=== PATIENT | female | born 1990 | race Caucasian/White ===

== ENCOUNTER 2016-10-01 19:10 | Emergency (ER) | payer OTHER ==
[2016-10-01 19:19] VITALS: BP 150/91; PULSE 93; RESP 18; TEMP 98.3
--- NOTE | 2016-10-01 19:32 | ED ---
ENT HPI - General Chief complaint: ENT Stated complaint: Sore Throat Time Seen by Provider: 10/01/16 19:18 Source: patient, RN notes reviewed Mode of arrival: ambulatory Limitations: no limitations - History of Present Illness Initial comments: 25 yo female presents to the ER with cc of sore throat. patient has had it for sore throat since yesterday. Patient has felt febrile. Patient states that her fever was up to 102. Patient denies a cough. Patient states that she has no other symptoms now ear pain. Patient states she was concerned due to her continued pain and was concerned that she may have strep throat. Patient denies any recent shortness of breath, chest pain, back pain, abdominal pain, nausea vomiting, numbness or tingling, dysuria or hematuria, constipation or diarrhea, headaches or visual changes, or any other current symptoms. - Related Data Home Medications Medication Instructions Recorded Confirmed Albuterol Inhaler [Ventolin Hfa 1 - 2 puff INHALATION RT-Q6H PRN 04/09/14 Inhaler] Albuterol Nebulized [Ventolin 2.5 mg INHALATION RT-Q4H PRN 04/09/14 09/28/15 Nebulized] Budesonide/Formoterol Fumarate 2 puff INHALATION RT-BID 09/23/15 09/28/15 [Symbicort 160-4.5 Mcg Inhaler] Citalopram Hydrobromide [CeleXA] 40 mg PO HS 09/23/15 09/28/15 Cyclobenzaprine [Flexeril] 10 mg PO TID PRN 09/23/15 09/28/15 Famotidine [Pepcid] 20 mg PO TID 09/23/15 09/28/15 Ibuprofen [Motrin] 800 mg PO TID PRN 09/23/15 09/28/15 Phentermine HCl [Adipex-P] 37.5 mg PO QAM 09/23/15 09/28/15 Previous Rx's Medication Instructions Recorded Ondansetron Odt [Zofran Odt] 4 mg PO Q8HR PRN #8 tab 09/23/15 Sucralfate [Carafate] 1 gm PO Q6H PRN #30 tablet 09/23/15 Promethazine [Phenergan] 25 mg PO Q6HR #16 tablet 09/28/15 Amoxicillin 500 mg PO Q8H #21 capsule 10/01/16 Allergies Allergy/AdvReac Type Severity Reaction Status Date / Time Egg Derived AdvReac CONGESTION Verified 10/01/16 19:14 milk AdvReac CONGESTION Verified 10/01/16 19:14 Review of Systems ROS Statement: Those systems with pertinent positive or pertinent negative responses have been documented in the HPI. ROS Other: All systems not noted in ROS Statement are negative. Past Medical History Past Medical History: Asthma Additional Past Medical History / Comment(s): Gastric ulcer History of Any Multi-Drug Resistant Organisms: None Reported Past Surgical History: Orthopedic Surgery Additional Past Surgical History / Comment(s): rotator cuff and left knee Past Anesthesia/Blood Transfusion Reactions: No Reported Reaction Past Psychological History: Depression Smoking Status: Current every day smoker Past Alcohol Use History: None Reported Past Drug Use History: None Reported General Exam - General Exam Comments Initial Comments: General exam: Alert, active, comfortable in no apparent distress Head: Normocephalic Eyes: Normal reaction of pupils, equal size, normal range of extraocular motion Ears: normal external ear canals, pink tympanic membranes with normal cone of light Nose: clear with pink turbinates Throat: erythema with exudateswith normal sized tonsils Neck: no masses, no nuchal rigidity Chest: no chest wall deformity Lungs: equal air entry with no crackles or wheeze CVS: S1 and S2 normal with no audible mumurs, regular rhythm Abdomen: no hepatosplenomegaly, normal bowel sounds, no guarding or rigidity Spine: no scoliosis or deformity Skin: no rashes Neurological: No focal deficits, tone is normal in all 4 extremities Limitations: no limitations Course Vital Signs 10/01/16 19:14 Temperature 98.3 F Pulse Rate 93 Respiratory 18 Rate Blood Pressure 150/91 O2 Sat by Pulse 97 Oximetry Medical Decision Making - Medical Decision Making 25-year-old female presents for appears to be pharyngitis. This and will start patient antibiotics. We discussed Motrin Tylenol for fever and pain control. We discussed return parameters and follow-up. We discussed all the patient's family's questions. He stated the Regino they are in agreement with the plan. This and will be discharged home. Disposition Clinical Impression: Acute pharyngitis Disposition: HOME SELF-CARE Condition: Stable Instructions: Pharyngitis (ED) Additional Instructions: Please use medication as discussed. Please follow up with family doctor if symptoms have not improved over the next two days. Please return to the emergency room if your symptoms increase or worsen or for any other concerns. Prescriptions: Amoxicillin 500 mg PO Q8H #21 capsule Referrals: Renee Roper DO [Primary Care Provider] - 1-2 days Time of Disposition: 19:31
== END 2016-10-01 19:41 | disposition home or self-care (01) ==
LOC: EC 19:10
DX: J02.9 Acute pharyngitis, unspecified (principal); J45.909 Unspecified asthma, uncomplicated; K25.9 Gastric ulcer, unspecified as acute or chronic, without hemorrhage or perforation; F32.9 Major depressive disorder, single episode, unspecified; F17.200 Nicotine dependence, unspecified, uncomplicated; Z91.011 Allergy to milk products; Z91.012 Allergy to eggs; Z79.51 Long term (current) use of inhaled steroids; Z79.899 Other long term (current) drug therapy
CPT/HCPCS: 99282

== ENCOUNTER 2022-05-10 19:34 | Emergency (ER) | payer OTHER, BC ==
[2022-05-10 19:42] VITALS: TEMP 98
[2022-05-10] MEDS ORDERED: ONDANSETRON 4 MG/2 ML VIAL IVP STA (20:05)
[2022-05-10] MEDS ORDERED: SODIUM CHLORIDE 0.9% 2,000 ML IV STA (20:05)
[2022-05-10] MEDS ORDERED: KETOROLAC 15 MG/ML 1 ML VIAL IVP STA (20:05)
[2022-05-10 20:17] VITALS: RESP 16
[2022-05-10 20:22] LABS: Appearance,Urine Clear (Clear); Bilirubin,Urine Negative (Negative); Blood,Urine Negative (Negative); Color,Urine Yellow; Glucose,Urine (UA) Negative (Negative); Ketones,Urine Negative (Negative); Leukocyte Esterase,Urine Negative (Negative); Nitrite,Urine Negative (Negative); PH, Urine 5.5 (5.0-8.0); Protein,Urine Negative (Negative); Specific Gravity,Urine 1.017 (1.001-1.035); Urobilinogen,Urine <2.0 mg/dL (<2.0)
--- NOTE | 2022-05-10 22:00 | CT ---
EXAMINATION TYPE: CT abdomen pelvis w con CT DLP: 1856.6 mGycm, Automated exposure control for dose reduction was used. DATE OF EXAM: 05/10/2022 9:50 PM COMPARISON: CT abdomen pelvis most recent from 06/27/2010 CLINICAL INDICATION:Female, 31 years old with history of abdominal pain right; pain TECHNIQUE: Axial CT of the abdomen and pelvis. Sagittal and coronal reformats were created on a [facility] workstation. Contrast used:100ml mL of Isovue 300 with IV Contrast, Oral contrast used: without Oral Contrast FINDINGS: LOWER CHEST: Unremarkable ABDOMEN LIVER: Diffusely hypoattenuating parenchyma. GALLBLADDER AND BILE DUCTS: Unremarkable. PANCREAS: Unremarkable. SPLEEN: Unremarkable. ADRENAL GLANDS: Unremarkable. KIDNEYS AND URETERS: No evidence of hydronephrosis or renal calculus. The ureters are unremarkable. PELVIS BLADDER: Unremarkable REPRODUCTIVE: Unremarkable. ABDOMEN & PELVIS STOMACH AND BOWEL: No evidence of bowel obstruction. Appendix is normal. PERITONEUM/RETROPERITONEUM: No evidence of pneumoperitoneum or free fluid. . VASCULATURE: No evidence of aortic aneurysm. MUSCULOSKELETAL: No acute osseous abnormalities LYMPH NODES: No gross evidence for lymphadenopathy. SOFT TISSUE/ABDOMINAL WALL: Fat-containing umbilical hernia. IMPRESSION: 1. No evidence for acute abdominal process. No obstructive uropathy. The appendix is normal. 2. Hepatic steatosis.
--- NOTE | 2022-05-10 22:15 | ED ---
Abdominal Pain HPI - General Chief Complaint: Abdominal Pain Stated Complaint: Abdominal pain; nausea; fever Time Seen by Provider: 05/10/22 19:48 Source: patient, RN notes reviewed Mode of arrival: ambulatory Limitations: no limitations - History of Present Illness Initial Comments: 31-year-old female presents emergency Department chief complaint right-sided abdominal pain. Patient states that she's been sick throughout the day. Patient states that nothing makes the pain feel better or worse at this time. Patient states primarily right lower radiates up to the right upper. Patient reports subjective fever. No chest pain or shortness of breath denies any dysuria hematuria no history of kidney stones. Patient denies any chance . - Related Data Home Medications Medication Instructions Recorded Confirmed Albuterol Inhaler [Ventolin Hfa 2 puff INHALATION RT-Q6H PRN 04/09/14 05/10/22 Inhaler] Albuterol Nebulized [Ventolin 2.5 mg INHALATION RT-QID PRN 04/09/14 05/10/22 Nebulized] Citalopram Hydrobromide [CeleXA] 40 mg PO HS 09/23/15 05/10/22 Mometasone/Formoterol [Dulera 200 2 puff INHALATION RT-BID 05/10/22 05/10/22 Mcg-5 Mcg Inhaler] Montelukast [Singulair] 10 mg PO HS 05/10/22 05/10/22 Pantoprazole [Protonix] 40 mg PO HS 05/10/22 05/10/22 Topiramate 100 mg PO BID 05/10/22 05/10/22 Vestura 3 Mg - 0.02 Mg Tab 1 tab PO HS 05/10/22 05/10/22 Previous Rx's Medication Instructions Recorded Ondansetron Odt [Zofran Odt] 4 mg PO Q8HR PRN #10 tab 05/10/22 Allergies Allergy/AdvReac Type Severity Reaction Status Date / Time Egg Derived AdvReac CONGESTION Verified 05/10/22 21:14 milk AdvReac CONGESTION Verified 05/10/22 21:14 Review of Systems ROS Statement: Those systems with pertinent positive or pertinent negative responses have been documented in the HPI. ROS Other: All systems not noted in ROS Statement are negative. Past Medical History Past Medical History: Asthma Additional Past Medical History / Comment(s): Gastric ulcer History of Any Multi-Drug Resistant Organisms: None Reported Past Surgical History: Hernia Repair, Orthopedic Surgery Additional Past Surgical History / Comment(s): rotator cuff and left knee Past Anesthesia/Blood Transfusion Reactions: No Reported Reaction Past Psychological History: Depression Smoking Status: Current every day smoker Past Alcohol Use History: None Reported Past Drug Use History: None Reported General Exam Limitations: no limitations General appearance: alert, in no apparent distress Head exam: Present: atraumatic, normocephalic, normal inspection Eye exam: Present: normal appearance, PERRL, EOMI. Absent: scleral icterus, conjunctival injection, periorbital swelling ENT exam: Present: normal exam, normal oropharynx, mucous membranes moist Neck exam: Present: normal inspection, full ROM. Absent: tenderness, meningismus, lymphadenopathy Respiratory exam: Present: normal lung sounds bilaterally. Absent: respiratory distress, wheezes, rales, rhonchi, stridor Cardiovascular Exam: Present: regular rate, normal rhythm, normal heart sounds. Absent: systolic murmur, diastolic murmur, rubs, gallop, clicks GI/Abdominal exam: Present: soft, tenderness, normal bowel sounds. Absent: distended, guarding, rebound, rigid Back exam: Absent: CVA tenderness (R), CVA tenderness (L) Neurological exam: Present: alert Course Vital Signs 05/10/22 05/10/22 05/10/22 19:38 20:16 21:00 Temperature 98 F Pulse Rate 90 72 78 Respiratory 20 16 Rate Blood Pressure 196/118 143/93 117/90 O2 Sat by Pulse 98 97 97 Oximetry Medical Decision Making - Medical Decision Making Was pt. sent in by a medical professional or institution (, PA, CHASSIS WIRER, urgent care, hospital, or snf...) When possible be specific @ -No Did you speak to anyone other than the patient for history (EMS, parent, family, police, friend...)? What history was obtained from this source @ -No Did you review nursing and triage notes (agree or disagree)? Why? @ -I reviewed and agree with nursing and triage notes Were old charts reviewed (outside hosp., previous admission, EMS record, old EKG, old radiological studies, urgent care reports/EKG's, snf records)? Report findings @ -No old charts were reviewed Differential Diagnosis (chest pain, altered mental status, abdominal pain women, abdominal pain men, vaginal bleeding, weakness, fever, dyspnea, syncope, headache, dizziness, GI bleed, back pain, seizure, CVA, palpatations, mental health)? @ -Differential Abdominal Pain Men: Appendicitis, cholecystitis, diverticulosis, ischemic bowel, pancreatitis, hepatitis, UTI, gastroenteritis, AAA, incarcerated hernia, bowel obstruction, constipation, inflammatory bowel, hepatitis, peptic ulcer disease, splenic infarction, perforated viscus, testicular torsion, this is not meant to be an all-inclusive list EKG interpreted by me (3pts min.). @ -None X-rays interpreted by me (1pt min.). @ -None done CT interpreted by me (1pt min.). @ -CT of the abdomen and pelvis shows no acute intra-abdominal process. U/S interpreted by me (1pt. min.). @ -None done What testing was considered but not performed or refused? (CT, X-rays, U/S, labs)? Why? @ -None What meds were considered but not given or refused? Why? @ -None Did you discuss the management of the patient with other professionals (professionals i.e. , PA, CHASSIS WIRER, lab, RT, psych nurse, geriatric social worker, employee relations manager, teacher, finance officer, child welfare caseworker)? Give summary @ -No Was smoking cessation discussed for >3mins.? @ -No Was critical care preformed (if so, how long)? @ -No Were there social determinants of health that impacted care today? How? (Homelessness, low income, unemployed, alcoholism, drug addiction, transportation, low edu. Level, literacy, decrease access to med. care, usp, rehab)? @ -No Was there de-escalation of care discussed even if they declined (Discuss DNR or withdrawal of care, Hospice)? DNR status @ -No What co-morbidities impacted this encounter? (DM, HTN, Smoking, COPD, CAD, Cancer, CVA, ARF, Chemo, Hep., AIDS, mental health diagnosis, sleep apnea, morbid obesity)? @ -None Was patient admitted / discharged? Hospital course, mention meds given and route, prescriptions, significant lab abnormalities, going to OR and other pertinent info. @ -Discharge patient have. Labs come CT with no acute findings. Patient is improved after fluids, antiemetics. Patient was discharged with antiemetics, clear liquid diet return parameters were discussed. Undiagnosed new problem with uncertain prognosis? @ -No Drug Therapy requiring intensive monitoring for toxicity (Heparin, Nitro, Insulin, Cardizem)? @ -No Were any procedures done? @ -No Diagnosis/symptom? @ -Gastroenteritis Acute, or Chronic, or Acute on Chronic? @ -Acute Uncomplicated (without systemic symptoms) or Complicated (systemic symptoms)? @ -Uncomplicated Side effects of treatment? @ -No Exacerbation, Progression, or Severe Exacerbation? @ -No Poses a threat to life or bodily function? How? (Chest pain, [place], [place], pneumonia, PE, COPD, DKA, ARF, appy, cholecystitis, CVA, Diverticulitis, Homicidal, Suicidal, threat to staff... and all critical care pts) @ -No - Lab Data Result diagrams: 05/10/22 20:06 05/10/22 20:06 Lab Results 05/10/22 05/10/22 05/10/22 Range/Units 20:05 20:05 20:06 WBC 9.0 (3.8-10.6) k/uL RBC 4.31 (3.80-5.40) m/uL Hgb 13.5 (11.4-16.0) gm/dL Hct 39.2 (34.0-46.0) % MCV 91.1 (80.0-100.0) fL MCH 31.3 (25.0-35.0) pg MCHC 34.3 (31.0-37.0) g/dL RDW 12.6 (11.5-15.5) % Plt Count 220 (150-450) k/uL MPV 10.0 Neutrophils % 58 % Lymphocytes % 31 % Monocytes % 7 % Eosinophils % 3 % Basophils % 1 % Neutrophils # 5.2 (1.3-7.7) k/uL Lymphocytes # 2.8 (1.0-4.8) k/uL Monocytes # 0.6 (0-1.0) k/uL Eosinophils # 0.3 (0-0.7) k/uL Basophils # 0.1 (0-0.2) k/uL Sodium (137-145) mmol/L Potassium (3.5-5.1) mmol/L Chloride (98-107) mmol/L Carbon Dioxide (22-30) mmol/L Anion Gap mmol/L BUN (7-17) mg/dL Creatinine (0.52-1.04) mg/dL Est GFR (CKD-EPI)AfAm (>60 ml/min/1.73 sqM) Est GFR (CKD-EPI)NonAf (>60 ml/min/1.73 sqM) Glucose (74-99) mg/dL Plasma Lactic Acid [place] (0.7-2.0) mmol/L Calcium (8.4-10.2) mg/dL Total Bilirubin (0.2-1.3) mg/dL AST (14-36) U/L ALT (4-34) U/L Alkaline Phosphatase (38-126) U/L Total Protein (6.3-8.2) g/dL Albumin (3.5-5.0) g/dL Amylase (30-110) U/L Lipase (23-300) U/L Urine Color Yellow Urine Appearance Clear (Clear) Urine pH 5.5 (5.0-8.0) Ur Specific [place] 1.017 (1.001-1.035) Urine Protein Negative (Negative) Urine Glucose (UA) Negative (Negative) Urine Ketones Negative (Negative) Urine Blood Negative (Negative) Urine Nitrite Negative (Negative) Urine Bilirubin Negative (Negative) Urine Urobilinogen <2.0 (<2.0) mg/dL Ur Leukocyte Esterase Negative (Negative) Urine HCG, Qual Not Detected (Not Detectd) 05/10/22 05/10/22 Range/Units 20:06 20:06 WBC (3.8-10.6) k/uL RBC (3.80-5.40) m/uL Hgb (11.4-16.0) gm/dL Hct (34.0-46.0) % MCV (80.0-100.0) fL MCH (25.0-35.0) pg MCHC (31.0-37.0) g/dL RDW (11.5-15.5) % Plt Count (150-450) k/uL MPV Neutrophils % % Lymphocytes % % Monocytes % % Eosinophils % % Basophils % % Neutrophils # (1.3-7.7) k/uL Lymphocytes # (1.0-4.8) k/uL Monocytes # (0-1.0) k/uL Eosinophils # (0-0.7) k/uL Basophils # (0-0.2) k/uL Sodium 139 (137-145) mmol/L Potassium 3.6 (3.5-5.1) mmol/L Chloride 110 H (98-107) mmol/L Carbon Dioxide 20 L (22-30) mmol/L Anion Gap 9 mmol/L BUN 13 (7-17) mg/dL Creatinine 0.76 (0.52-1.04) mg/dL Est GFR (CKD-EPI)AfAm >90 (>60 ml/min/1.73 sqM) Est GFR (CKD-EPI)NonAf >90 (>60 ml/min/1.73 sqM) Glucose 83 (74-99) mg/dL Plasma Lactic Acid [place] 1.1 (0.7-2.0) mmol/L Calcium 9.4 (8.4-10.2) mg/dL Total Bilirubin 0.4 (0.2-1.3) mg/dL AST 42 H (14-36) U/L ALT 74 H (4-34) U/L Alkaline Phosphatase 53 (38-126) U/L Total Protein 6.8 (6.3-8.2) g/dL Albumin 4.0 (3.5-5.0) g/dL Amylase 42 (30-110) U/L Lipase 67 (23-300) U/L Urine Color Urine Appearance (Clear) Urine pH (5.0-8.0) Ur Specific [place] (1.001-1.035) Urine Protein (Negative) Urine Glucose (UA) (Negative) Urine Ketones (Negative) Urine Blood (Negative) Urine Nitrite (Negative) Urine Bilirubin (Negative) Urine Urobilinogen (<2.0) mg/dL Ur Leukocyte Esterase (Negative) Urine HCG, Qual (Not Detectd) Disposition Clinical Impression: Abdominal pain, Gastroenteritis Disposition: HOME SELF-CARE Condition: Stable Instructions (If sedation given, give patient instructions): Abdominal Pain (ED) Additional Instructions: Please return to the Emergency Department if symptoms worsen or any other concerns. Prescriptions: Ondansetron Odt [Zofran Odt] 4 mg PO Q8HR PRN #10 tab PRN Reason: Nausea Is patient prescribed a controlled substance at d/c from ED?: No Referrals: Renee Roper DO [Primary Care Provider] - 1-2 days Time of Disposition: 23:25
[2022-05-10] MEDS ORDERED: METOCLOPRAMIDE 5 MG/ML 2 ML VIAL IVP STA (22:48)
[2022-05-10 22:57] LABS: Basophils # (A) 0.1 k/uL (0-0.2); Basophils % (A) 1 %; Eosinophils # (A) 0.3 k/uL (0-0.7); Eosinophils % (A) 3 %; HCT 39.2 % (34.0-46.0); HGB 13.5 gm/dL (11.4-16.0); Lymphocytes # (A) 2.8 k/uL (1.0-4.8); Lymphocytes % (A) 31 %; MCH 31.3 pg (25.0-35.0); MCHC 34.3 g/dL (31.0-37.0); MCV 91.1 fL (80.0-100.0); Monocytes # (A) 0.6 k/uL (0-1.0); Monocytes % (A) 7 %; Neutrophils # (A) 5.2 k/uL (1.3-7.7); Neutrophils % (A) 58 %; Platelet Count 220 k/uL (150-450); RBC 4.31 m/uL (3.80-5.40); RDW 12.6 % (11.5-15.5)
[2022-05-10 23:03] LABS: ALT 74 U/L (4-34); AST 42 U/L (14-36); African American GFR (CKD) >90 (>60 ml/min/1.73 sqM); Alkaline Phosphatase 53 U/L (38-126); Amylase 42 U/L (30-110); Anion Gap 9 mmol/L; Blood Urea Nitrogen 13 mg/dL (7-17); Calcium 9.4 mg/dL (8.4-10.2); Carbon Dioxide 20 mmol/L (22-30); Chloride 110 mmol/L (98-107); Glucose 83 mg/dL (74-99); Lipase 67 U/L (23-300); Non-African American GFR(CKD) >90 (>60 ml/min/1.73 sqM); Potassium 3.6 mmol/L (3.5-5.1); Sodium 139 mmol/L (137-145); Total Bilirubin 0.4 mg/dL (0.2-1.3); Total Protein 6.8 g/dL (6.3-8.2)
[2022-05-10] MEDS ORDERED: ACET/COD 300 MG/30 MG STARTER PACK 6 TAB BTL PO STA (23:23)
[2022-05-10] MEDS ORDERED: ONDANSETRON 4 MG ODT STARTER PACK 2 TAB BTL PO STA (23:24)
[2022-05-10 23:56] VITALS: BP 128/76; PULSE 72
== END 2022-05-10 23:56 | disposition home or self-care (01) ==
LOC: EC 19:34
DX: K52.9 Noninfective gastroenteritis and colitis, unspecified (principal); J45.909 Unspecified asthma, uncomplicated; F32.A Depression, unspecified; F17.200 Nicotine dependence, unspecified, uncomplicated; Z91.012 Allergy to eggs; Z91.011 Allergy to milk products; Z79.899 Other long term (current) drug therapy
CPT/HCPCS: 36415; 80053; 82150; 83605; 83690; 85025; 81003; 81025; 74177; 99284; 96374; 96375 ×2; 96361 ×2; J2765; J2405; J1885; S0119; Q9967

== ENCOUNTER → 2022-07-22 | Outpatient (CLI) | payer OTHER ==
--- NOTE | 2022-07-22 21:54 | MR ---
EXAMINATION TYPE: MR brain wo con DATE OF EXAM: 07/22/2022 8:58 PM COMPARISON: NONE HISTORY: Severe Headaches for many years Multiplanar and multispin-echo imaging of the brain was performed . The ventricles, basal cisterns and sulci overlying the cerebral convexities are within normal limits. There is no evidence for midline shift or mass effect. Acute intracranial hemorrhage or extra-axial collection is not evident. The brain parenchyma reveals no abnormal increased signal. No acute edema is identified. The paranasal sinuses small mucous retention cyst right maxillary sinus. Mastoid air cells are well-a erated. IMPRESSION: Unremarkable MRI of the brain.
== END | disposition home or self-care (01) ==
LOC: RADMRIMAIN 20:15
PROVIDERS: ATTEND Family Medicine
DX: G43.009 Migraine without aura, not intractable, without status migrainosus (principal)
CPT/HCPCS: 70551

== ENCOUNTER 2023-04-26 13:03 | Inpatient (IN) | payer OTHER ==
[2023-04-26] MEDS ORDERED: ONDANSETRON 4 MG/2 ML VIAL IVP STA (13:53)
[2023-04-26] MEDS ORDERED: SODIUM CHLORIDE 0.9% 1,000 ML IV STA (13:53)
[2023-04-26] MEDS ORDERED: KETOROLAC 15 MG/ML 1 ML VIAL IVP STA (13:54)
--- NOTE | 2023-04-26 13:55 | ED ---
Nausea/Vomiting/Diarrhea HPI - General Chief complaint: Nausea/Vomiting/Diarrhea Stated complaint: NV, Bodyaches Time Seen by Provider: 04/26/23 13:16 Source: patient, RN notes reviewed, old records reviewed Mode of arrival: ambulatory Limitations: no limitations - History of Present Illness Initial comments: This is a 31-year-old female to the emergency department for evaluation of severe abdominal pain persistent abdominal pain with nausea vomiting. Patient has significant findings here in the emergency department consistent with severe pain with nausea vomiting she has felt chills without fever. Patient states her pain is uncontrollable. She is severely uncomfortable with intermittent waves of pain MD complaint: nausea, diarrhea, abdominal pain -: days(s) Description of Vomiting: food contents, watery Description of Diarrhea: water Associated Abdominal Pain: Yes Location: diffuse, RUQ Severity scale (1-10): 7 Quality: cramping, stabbing Consistency: constant Improves with: eating Worsens with: none Associated Symptoms: nausea/vomiting, shortness of breath, weakness - Related Data Home Medications Medication Instructions Recorded Confirmed Albuterol Inhaler [Ventolin Hfa 2 puff INHALATION RT-Q6H PRN 04/09/14 04/26/23 Inhaler] Albuterol Nebulized [Ventolin 2.5 mg INHALATION RT-QID PRN 04/09/14 04/26/23 Nebulized] Citalopram Hydrobromide [CeleXA] 40 mg PO HS 09/23/15 04/26/23 Mometasone/Formoterol [Dulera 200 2 puff INHALATION RT-BID 05/10/22 04/26/23 Mcg-5 Mcg Inhaler] Montelukast [Singulair] 10 mg PO HS 05/10/22 04/26/23 Pantoprazole [Protonix] 40 mg PO BID 05/10/22 04/26/23 Topiramate 200 mg PO HS 05/10/22 04/26/23 Dextroamphetamine/Amphetamine 20 mg PO DAILY 04/26/23 04/26/23 [Adderall Xr 20 mg Capsule] Ethinyl Estradiol/Drospirenone 1 tab PO HS 04/26/23 04/26/23 [Deysi 28 Tablet] Famotidine [Pepcid] 20 mg PO DAILY 04/26/23 04/26/23 Metoclopramide [Reglan] 10 mg PO QID PRN 04/26/23 04/26/23 Ondansetron [Zofran] 4 mg PO TID PRN 04/26/23 04/26/23 Sucralfate [Carafate] 1 gm PO ACHS 04/26/23 04/26/23 Previous Rx's Medication Instructions Recorded Acetaminophen Tab [Tylenol Tab] 1,000 mg PO Q6HR PRN #30 tablet 04/28/23 Ibuprofen [Motrin] 600 mg PO Q8HR PRN #30 tab 04/28/23 Simethicone [Gas-X] 125 mg PO AC-TID PRN #20 capsule 04/28/23 Allergies Allergy/AdvReac Type Severity Reaction Status Date / Time No Known Allergies Allergy Verified 04/28/23 14:38 Review of Systems ROS Statement: Those systems with pertinent positive or pertinent negative responses have been documented in the HPI. ROS Other: All systems not noted in ROS Statement are negative. Past Medical History Past Medical History: Asthma Additional Past Medical History / Comment(s): Gastric ulcer, H Pylori 04/08 History of Any Multi-Drug Resistant Organisms: None Reported Past Surgical History: Hernia Repair, Orthopedic Surgery Additional Past Surgical History / Comment(s): rotator cuff and left knee Past Anesthesia/Blood Transfusion Reactions: No Reported Reaction Past Psychological History: Depression Smoking Status: Vaper Past Alcohol Use History: None Reported Past Drug Use History: None Reported General Exam Limitations: no limitations General appearance: alert, in no apparent distress, anxious Head exam: Present: atraumatic, normocephalic, normal inspection Eye exam: Present: normal appearance, PERRL, EOMI. Absent: scleral icterus, conjunctival injection, periorbital swelling ENT exam: Present: normal exam, mucous membranes moist Neck exam: Present: normal inspection. Absent: tenderness, meningismus, lymphadenopathy Respiratory exam: Present: normal lung sounds bilaterally. Absent: respiratory distress, wheezes, rales, rhonchi, stridor Cardiovascular Exam: Present: regular rate, normal rhythm, normal heart sounds. Absent: systolic murmur, diastolic murmur, rubs, gallop, clicks GI/Abdominal exam: Present: soft, distended, tenderness, guarding, rebound, normal bowel sounds. Absent: rigid Extremities exam: Present: normal inspection, full ROM, normal capillary refill. Absent: tenderness, pedal edema, joint swelling, calf tenderness Back exam: Present: normal inspection Neurological exam: Present: alert, oriented X3, CN II-XII intact Psychiatric exam: Present: normal affect, normal mood Skin exam: Present: warm, dry, intact, normal color. Absent: rash Course Vital Signs 04/26/23 04/26/23 13:09 19:45 Temperature 97.7 F 98.7 F Pulse Rate 102 H 98 Respiratory 18 16 Rate Blood Pressure 135/88 132/78 O2 Sat by Pulse 96 96 Oximetry - Reevaluation(s) Reevaluation #1: 04/26/23 20:05 Medical records reviewed Reevaluation #2: 04/26/23 20:05 Patient symptoms improved 04/26/23 20:05 Point to come back after pain medication wears off Reevaluation #3: 04/26/23 20:05 Patient informed results and questions answered Reevaluation #4: 04/26/23 20:05 Was pt. sent in by a medical professional or institution (, PA, BOWLING ALLEY MANAGER, urgent care, hospital, or fci...) When possible be specific @ -no Did you speak to anyone other than the patient for history (EMS, parent, family, police, friend...)? What history was obtained from this source @ -no Did you review nursing and triage notes (agree or disagree)? Why? @ -agree Are old charts reviewed (outside hosp., previous admission, EMS record, old EKG, old radiological studies, urgent care reports/EKG's, fci records)? Report findings @ -yes Differential Diagnosis (chest pain, altered mental status, abdominal pain women, abdominal pain men, vaginal bleeding, weakness, fever, dyspnea, syncope, headache, dizziness, GI bleed, back pain, seizure, CVA, palpatations, mental health, musculoskeletal)? @ -prior EKG interpreted by me (3pts min.). @ -yes X-rays interpreted by me (1pt min.). @ -no CT interpreted by me (1pt min.). @ -no U/S interpreted by me (1pt. min.). @ -yes positive for cholecystitis What testing was considered but not performed or refused? (CT, X-rays, U/S, labs)? Why? @ -none What meds were considered but not given or refused? Why? @ -none Did you discuss the management of the patient with other professionals (professionals i.e. DrShaun, PA, BOWLING ALLEY MANAGER, lab, RT, psych nurse, social media marketing manager, saw boss, teacher, correctional probation officer, nurse case management)? Give summary @ -no Was smoking cessation discussed for >3mins.? @ -no Was critical care preformed (if so, how long)? @ -no Were there social determinants of health that impacted care today? How? (Homelessness, low income, unemployed, alcoholism, drug addiction, transportation, low edu. Level, literacy, decrease access to med. care, senior care, rehab)? @ -none Was there de-escalation of care discussed even if they declined (Discuss DNR or withdrawal of care, Hospice)? DNR status @ -no What co-morbidities impacted this encounter? (DM, HTN, Smoking, COPD, CAD, Cancer, CVA, ARF, Chemo, Hep., AIDS, mental health diagnosis, sleep apnea, morbid obesity)? @ -none Was patient admitted / discharged? Hospital course, mention meds given and route, prescriptions, significant lab abnormalities, going to OR and other pertinent info. @ - 30-year-old female to the emergency department today for severe abdominal pain after eating findings indicative of cholecystitis and pain is controlled, patient will be admitted for IV antibiotics pain control and surgical evaluation Admitted Undiagnosed new problem with uncertain prognosis? @ -no Drug Therapy requiring intensive monitoring for toxicity (Heparin, Nitro, Insulin, Cardizem)? @ -no Were any procedures done? @ -no Diagnosis/symptom? @ -Acute cholecystitis Acute, or Chronic, or Acute on Chronic? @ -Acute Uncomplicated (without systemic symptoms) or Complicated (systemic symptoms)? @ -Complicated Side effects of treatment? @ -no Exacerbation, Progression, or Severe Exacerbation? @ -exacerbation Poses a threat to life or bodily function? How? (Chest pain, [place], [place], pneumonia, PE, COPD, DKA, ARF, appy, cholecystitis, CVA, Diverticulitis, Homicidal, Suicidal, threat to staff... and all critical care pts) @ -yes Reevaluation #5: 04/26/23 20:05 Differential Abdominal Pain Women: Appendicitis, Cholecystitis, diverticulosis, ischemic bowel, pancreatitis, hepatitis, UTI, gastroenteritis, AAA, incarcerated hernia, bowel obstruction, constipation, inflammatory bowel, hepatitis, peptic ulcer disease, splenic infarction, perforated viscus, vulvitis, ovarian torsion, PID, kidney stone, placenta abruption, this is not meant to be an all-inclusive list - Consultations Consultation #1: Spoke with Dr. Bowman who agrees to admit this patient Medical Decision Making - Medical Decision Making 30-year-old female to the emergency department today for severe abdominal pain after eating findings indicative of cholecystitis and pain is controlled, patient will be admitted for IV antibiotics pain control and surgical evaluation - Lab Data Result diagrams: 04/29/23 05:50 04/29/23 05:50 Lab Results 04/26/23 04/26/23 04/26/23 Range/Units 14:03 14:03 14:03 WBC 6.5 (3.8-10.6) k/uL RBC 4.48 (3.80-5.40) m/uL Hgb 13.8 (11.4-16.0) gm/dL Hct 40.2 (34.0-46.0) % MCV 89.8 (80.0-100.0) fL MCH 30.8 (25.0-35.0) pg MCHC 34.3 (31.0-37.0) g/dL RDW 12.9 (11.5-15.5) % Plt Count 233 (150-450) k/uL MPV 8.1 Neutrophils % 59 % Lymphocytes % 30 % Monocytes % 6 % Eosinophils % 2 % Basophils % 1 % Neutrophils # 3.8 (1.3-7.7) k/uL Lymphocytes # 1.9 (1.0-4.8) k/uL Monocytes # 0.4 (0-1.0) k/uL Eosinophils # 0.2 (0-0.7) k/uL Basophils # 0.0 (0-0.2) k/uL PT 10.4 (10.0-12.5) sec INR 0.9 (<1.2) APTT 26.4 (22.0-30.0) sec Sodium 139 (137-145) mmol/L Potassium 3.7 (3.5-5.1) mmol/L Chloride 111 H (98-107) mmol/L Carbon Dioxide 18 L (22-30) mmol/L Anion Gap 10 mmol/L BUN 10 (7-17) mg/dL Creatinine 0.78 (0.52-1.04) mg/dL Est GFR (CKD-EPI)AfAm >90 (>60 ml/min/1.73 sqM) Est GFR (CKD-EPI)NonAf >90 (>60 ml/min/1.73 sqM) Glucose 89 (74-99) mg/dL Calcium 9.4 (8.4-10.2) mg/dL Phosphorus 3.3 (2.5-4.5) mg/dL Magnesium 2.2 (1.6-2.3) mg/dL Total Bilirubin 0.5 (0.2-1.3) mg/dL AST 30 (14-36) U/L ALT 41 H (4-34) U/L Alkaline Phosphatase 73 (38-126) U/L Troponin I (0.000-0.034) ng/mL Total Protein 6.8 (6.3-8.2) g/dL Albumin 3.8 (3.5-5.0) g/dL Urine Color Urine Appearance (Clear) Urine pH (5.0-8.0) Ur Specific [place] (1.001-1.035) Urine Protein (Negative) Urine Glucose (UA) (Negative) Urine Ketones (Negative) Urine Blood (Negative) Urine Nitrite (Negative) Urine Bilirubin (Negative) Urine Urobilinogen (<2.0) mg/dL Ur Leukocyte Esterase (Negative) Urine RBC (0-5) /hpf Urine WBC (0-5) /hpf Ur Squamous Epith Cells (0-4) /hpf Urine Bacteria (None) /hpf Hyaline Casts (0-2) /lpf Urine Mucus (None) /hpf Urine HCG, Qual (Not Detectd) 04/26/23 04/26/23 04/26/23 Range/Units 14:03 14:03 14:03 WBC (3.8-10.6) k/uL RBC (3.80-5.40) m/uL Hgb (11.4-16.0) gm/dL Hct (34.0-46.0) % MCV (80.0-100.0) fL MCH (25.0-35.0) pg MCHC (31.0-37.0) g/dL RDW (11.5-15.5) % Plt Count (150-450) k/uL MPV Neutrophils % % Lymphocytes % % Monocytes % % Eosinophils % % Basophils % % Neutrophils # (1.3-7.7) k/uL Lymphocytes # (1.0-4.8) k/uL Monocytes # (0-1.0) k/uL Eosinophils # (0-0.7) k/uL Basophils # (0-0.2) k/uL PT (10.0-12.5) sec INR (<1.2) APTT (22.0-30.0) sec Sodium (137-145) mmol/L Potassium (3.5-5.1) mmol/L Chloride (98-107) mmol/L Carbon Dioxide (22-30) mmol/L Anion Gap mmol/L BUN (7-17) mg/dL Creatinine (0.52-1.04) mg/dL Est GFR (CKD-EPI)AfAm (>60 ml/min/1.73 sqM) Est GFR (CKD-EPI)NonAf (>60 ml/min/1.73 sqM) Glucose (74-99) mg/dL Calcium (8.4-10.2) mg/dL Phosphorus (2.5-4.5) mg/dL Magnesium (1.6-2.3) mg/dL Total Bilirubin (0.2-1.3) mg/dL AST (14-36) U/L ALT (4-34) U/L Alkaline Phosphatase (38-126) U/L Troponin I <0.012 (0.000-0.034) ng/mL Total Protein (6.3-8.2) g/dL Albumin (3.5-5.0) g/dL Urine Color Yellow Urine Appearance Cloudy H (Clear) Urine pH 5.5 (5.0-8.0) Ur Specific [place] 1.022 (1.001-1.035) Urine Protein Negative (Negative) Urine Glucose (UA) Negative (Negative) Urine Ketones Negative (Negative) Urine Blood Negative (Negative) Urine Nitrite Negative (Negative) Urine Bilirubin Negative (Negative) Urine Urobilinogen <2.0 (<2.0) mg/dL Ur Leukocyte Esterase Small H (Negative) Urine RBC 2 (0-5) /hpf Urine WBC 5 (0-5) /hpf Ur Squamous Epith Cells 20 H (0-4) /hpf Urine Bacteria Occasional H (None) /hpf Hyaline Casts 1 (0-2) /lpf Urine Mucus Moderate H (None) /hpf Urine HCG, Qual Not Detected (Not Detectd) - EKG Data -: EKG Interpreted by Me (EKG is sinus 80 NH 175 QRS 102 QTC 433) - Radiology Data Radiology results: report reviewed (Ultrasound gallbladder positive for cholelithiasis and sludge), image reviewed Disposition Clinical Impression: Dehydration, Abdominal pain, Cholecystitis, Biliary colic Disposition: ADMITTED IP TO THIS HOSP Condition: Fair Is patient prescribed a controlled substance at d/c from ED?: No Time of Disposition: 16:50
[2023-04-26 14:21] LABS: Basophils % (A) 1 %; Eosinophils # (A) 0.2 k/uL (0-0.7); Eosinophils % (A) 2 %; HCT 40.2 % (34.0-46.0); HGB 13.8 gm/dL (11.4-16.0); Lymphocytes # (A) 1.9 k/uL (1.0-4.8); Lymphocytes % (A) 30 %; MCH 30.8 pg (25.0-35.0); MCHC 34.3 g/dL (31.0-37.0); MCV 89.8 fL (80.0-100.0); Mean Platelet Volume 8.1; Monocytes # (A) 0.4 k/uL (0-1.0); Monocytes % (A) 6 %; Neutrophils # (A) 3.8 k/uL (1.3-7.7); Neutrophils % (A) 59 %; Platelet Count 233 k/uL (150-450); RBC 4.48 m/uL (3.80-5.40); RDW 12.9 % (11.5-15.5); WBC 6.5 k/uL (3.8-10.6)
[2023-04-26 14:29] LABS: Appearance,Urine Cloudy (Clear); Bacteria,Urine Occasional /hpf; Bilirubin,Urine Negative (Negative); Blood,Urine Negative (Negative); Color,Urine Yellow; Glucose,Urine (UA) Negative (Negative); Hyaline Casts,Urine 1 /lpf (0-2); Ketones,Urine Negative (Negative); Leukocyte Esterase,Urine Small (Negative); Mucus,Urine Moderate /hpf; Nitrite,Urine Negative (Negative); PH, Urine 5.5 (5.0-8.0); Protein,Urine Negative (Negative); RBC,Urine 2 /hpf (0-5); Specific Gravity,Urine 1.022 (1.001-1.035); Squamous Epithelial Cell,Urine 20 /hpf (0-4); Urobilinogen,Urine <2.0 mg/dL (<2.0); WBC,Urine 5 /hpf (0-5)
[2023-04-26] MEDS: MORPHINE SULFATE 4 MG/ML SYRINGE IV STA ×2 (14:29→14:31)
[2023-04-26 14:30] LABS: INR 0.9 (<1.2); Partial Thromboplastin Time 26.4 sec (22.0-30.0); Prothrombin Time 10.4 sec (10.0-12.5)
[2023-04-26 14:46] LABS: ALT 41 U/L (4-34); AST 30 U/L (14-36); African American GFR (CKD) >90 (>60 ml/min/1.73 sqM); Albumin 3.8 g/dL (3.5-5.0); Alkaline Phosphatase 73 U/L (38-126); Anion Gap 10 mmol/L; Blood Urea Nitrogen 10 mg/dL (7-17); Calcium 9.4 mg/dL (8.4-10.2); Carbon Dioxide 18 mmol/L (22-30); Chloride 111 mmol/L (98-107); Glucose 89 mg/dL (74-99); Magnesium 2.2 mg/dL (1.6-2.3); Non-African American GFR(CKD) >90 (>60 ml/min/1.73 sqM); Phosphorus 3.3 mg/dL (2.5-4.5); Potassium 3.7 mmol/L (3.5-5.1); Sodium 139 mmol/L (137-145); Total Bilirubin 0.5 mg/dL (0.2-1.3); Total Protein 6.8 g/dL (6.3-8.2)
--- NOTE | 2023-04-26 15:33 | US ---
EXAMINATION TYPE: US gallbladder DATE OF EXAM: 04/26/2023 COMPARISON: NONE CLINICAL INDICATION: Female, 32 years old with history of pain; RUQ pain with N/V for 3 days, large h abitus TECHNIQUE: Multiple sonographic images of the right upper quadrant are obtained. FINDINGS: EXAM MEASUREMENTS: Liver Length: 23.0cm Gallbladder Wall: 0.3cm CBD: 6.5 mm Right Kidney: 12.2 x 5.4 x 5.7cm FLASK CLEANER NOTES:Due to habitus and bowel gas imaging was suboptimal Pancreas: limited views appear wnl Liver: grossly enlarged and markedly echogenic. Gallbladder: possible dependant sludge seen. Borderline wall thickening at 3 mm. Mildly hydropic and 4.5 cm wide. Evidence for sonographic Mcghee's sign: no CBD: Borderline dilated. Right Kidney: wnl IMPRESSION: 1. Hepatomegaly at 23.0 cm with very severe hepatic steatosis. Correlate with LFTs, lipid profile, an d patient risk factors. Appropriate clinical management is advised. 2. Mildly hydropic gallbladder with some faint layering sludge. Findings may relate to fasting state. If concern for early acute cholecystitis, HIDA scan can be performed. 3. Borderline dilated bile duct at 6.5 mm. Correlate with alkaline phosphatase and bilirubin levels t o exclude biliary obstruction.
[2023-04-26] MEDS ORDERED: NALOXONE 0.4 MG/ML 1 ML VIAL IV PRN (16:48)
[2023-04-26] MEDS: SODIUM CHLORIDE 0.9% 1,000 ML IV SCH (17:25)
[2023-04-26] MEDS ORDERED: METOCLOPRAMIDE 10 MG TAB PO PRN (17:49)
[2023-04-26] MEDS ORDERED: ALBUTEROL INHALATION PRN (17:49)
[2023-04-26] MEDS: HYDROmorphone 1 MG/ML 1 ML SYRINGE IVP PRN ×2 (18:37→21:47)
[2023-04-26] MEDS: PANTOPRAZOLE 40 MG TABLET PO SCH (18:37)
[2023-04-26] MEDS: SYMBICORT 160-4.5 MCG INHALER INHALATION SCH (19:35)
[2023-04-26] MEDS: DROSPIRENONE PO SCH (20:28)
[2023-04-26] MEDS: ETHINYL ESTRADIOL PO SCH (20:28)
[2023-04-26] MEDS: ONDANSETRON 4 MG TAB PO PRN (20:31)
[2023-04-26] MEDS: CITALOPRAM HYDROBROMIDE 20 MG TAB PO SCH (20:32)
[2023-04-26] MEDS: TOPIRAMATE 100 MG TAB PO SCH (20:32)
[2023-04-26] MEDS: SUCRALFATE 1 GM TAB PO SCH (20:32)
[2023-04-26] MEDS: MONTELUKAST 10 MG TAB PO SCH (20:32)
[2023-04-27] MEDS: HYDROmorphone 1 MG/ML 1 ML SYRINGE IVP PRN ×6 (03:24→20:44)
[2023-04-27] MEDS: SODIUM CHLORIDE 0.9% 1,000 ML IV SCH ×4 (04:50→23:54)
[2023-04-27] MEDS: SUCRALFATE 1 GM TAB PO SCH ×4 (06:30→20:40)
[2023-04-27] MEDS: SYMBICORT 160-4.5 MCG INHALER INHALATION SCH ×2 (08:30→19:37)
[2023-04-27] MEDS: FAMOTIDINE 20 MG TAB PO SCH (08:34)
[2023-04-27] MEDS: ONDANSETRON 4 MG TAB PO PRN (08:40)
[2023-04-27 09:07] LABS: Blood Urea Nitrogen 8.8 mg/dL (9.0-27.0); Chloride 107 mmol/L (96-109); Glucose 82 mg/dL (70-110); Lipase 20 U/L (14-63); Magnesium 2.3 mg/dL (1.5-2.4); Phosphorus 4.2 mg/dL (2.4-5.1); Potassium 4.2 mmol/L (3.5-5.5); Sodium 140 mmol/L (135-145)
[2023-04-27 09:08] LABS: ALT 39 U/L (8-44); AST 24 U/L (13-35); Albumin/Globulin Ratio 1.67 Ratio (1.60-3.17); Alkaline Phosphatase 60 U/L (41-126); Calcium 9.5 mg/dL (8.7-10.3); Globulin 2.4 g/dL (1.6-3.3); Total Bilirubin 0.3 mg/dL (0.3-1.2); Total Protein 6.4 g/dL (6.2-8.2)
[2023-04-27] MEDS: AMPHETAMINE PO SCH (09:15)
[2023-04-27] MEDS: DEXTROAMPHETAMINE PO SCH (09:15)
[2023-04-27 09:26] LABS: Basophils # (A) 0.03 X 10*3/uL (0.00-0.10); Basophils % (A) 0.4 %; Eosinophils # (A) 0.15 X 10*3/uL (0.04-0.35); Eosinophils % (A) 2.1 %; HCT 37.8 % (37.2-46.3); HGB 12.6 g/dL (12.0-15.0); Lymphocytes # (A) 2.17 X 10*3/uL (0.90-5.00); Lymphocytes % (A) 30.6 %; MCH 30.4 pg (27.0-32.0); MCHC 33.3 g/dL (32.0-37.0); MCV 91.1 FL (80.0-97.0); Mean Platelet Volume 11.1 FL (9.5-12.2); Monocytes # (A) 0.57 X 10*3/uL (0.20-1.00); NRBC Per 100 WBC 0 X 10*3/uL (0.00-0.01); Neutrophils # (A) 4.17 X 10*3/uL (1.80-7.70); Neutrophils % (A) 58.8 %; Platelet Count 238 X 10*3/uL (140-440); RBC 4.15 X 10*6/uL (4.10-5.20); RDW 12.8 % (11.5-14.5)
[2023-04-27] MEDS ORDERED: ONDANSETRON 4 MG/2 ML VIAL IVP PRN (11:24)
--- NOTE | 2023-04-27 11:29 | P.GSCN ---
History of Present Illness Consult date: 04/27/23 History of present illness: CHIEF COMPLAINT: Abdominal pain HISTORY OF PRESENT ILLNESS: This is a 32-year-old female who presented with right upper quadrant abdominal pain that radiated to her right shoulder. She's been dealing with this pain for about 3 months. Within the last couple a days she had increased vomiting and increased pain. She was unable to tolerate any food. She came in for further evaluation. Gallbladder ultrasound had shown hepatomegaly and severe hepatic steatosis. Mildly hydropic gallbladder with some faint layering sludge. Borderline dilated common bile duct at 6.5 mm. Patient has a past surgical history of a ventral abdominal hernia repair about 3 years ago. Also, a prior history of gastric ulcer with H. pylori. PAST MEDICAL HISTORY: See list. PAST SURGICAL HISTORY: See list. MEDICATIONS: See list. ALLERGIES: See list. SOCIAL HISTORY: No illicit drug use. REVIEW OF SYSTEMS: CONSTITUTIONAL: Denies fever or chills. HEENT: Denies blurred vision, vision changes, or eye pain. Denies hemoptysis ENDOCRINE: Denies heat or cold intolerance. CARDIOVASCULAR: Denies chest pain or pressure. RESPIRATORY: No shortness of breath. GASTROINTESTINAL: Please refer to HPI NEURO: Denies history of seizures. PSYCH: No depression or suicidal ideation HEMATOLOGIC: Denies bleeding disorders. LYMPHATIC: The patient denies any lumps and bumps around the neck. GENITOURINARY: Denies any blood in urine or increased urinary frequency. MUSCULOSKELETAL: Denies myalgias. Denies joint swelling. Denies decreased range of motion beyond patients baseline. SKIN: Denies pruitis. Denies rash. PHYSICAL EXAM: VITAL SIGNS: Reviewed GENERAL: Well-developed in no acute distress. HEENT: No sclera icterus. Extraocular movements grossly intact. Moist buccal mucosa. Head is atraumatic, normocephalic. Hears conversational speech. No nasal drainage. NECK: Supple without lymphadenopathy. CHEST: Non-labored respirations and equal bilateral excursions. CARDIOVASCULAR: Palpable 2+ radial pulses. ABDOMEN: Soft. Nondistended. Right upper quadrant tenderness with palpation MUSCULOSKELETAL: No clubbing or cyanosis. NEUROLOGIC: No focal or lateralizing signs. Cranial nerves II through XII grossly intact. PSYCH: Appropriate affect. Alert and oriented to person, place and time. SKIN: Well perfused. Good skin turgor. LABORATORY DATA: WBC 7.10 Hgb 12.6 platelets 238 Sodium 140 potassium 4.2 creatinine 0.8 Total bili 0.3 AST 24 ALT down from 41-39 alk phos 60 IMAGING: Gallbladder ultrasound as stated above. ASSESSMENT: 1. Acute cholecystitis. Abdominal ultrasound revealing a mildly hydropic gallbladder with sludge. 2. Right upper quadrant abdominal pain with vomiting 3. Hepatomegaly and hepatic steatosis noted on ultrasound PLAN: -Patient scheduled for Robotic Cholecystectomy tomorrow, 04/28/[address] Ran Fisher for clear liquid diet today -Nothing by mouth after midnight -Start IV antibiotics -Continue IV fluids -Consult cardiology for cardiac risk assessment and abnormal EKG -Check a 2-D echo -Continue pain management -Continue antiemetics Thank you for this consultation Physician Interface Developer note has been reviewed by physician. Signing provider agrees with the documented findings, assessment, and plan of care. Past Medical History Past Medical History: Asthma Additional Past Medical History / Comment(s): Gastric ulcer, H Pylori 04/08 History of Any Multi-Drug Resistant Organisms: None Reported Past Surgical History: Hernia Repair, Orthopedic Surgery Additional Past Surgical History / Comment(s): rotator cuff and left knee Past Anesthesia/Blood Transfusion Reactions: No Reported Reaction Past Psychological History: Depression Smoking Status: Vaper Past Alcohol Use History: None Reported Past Drug Use History: None Reported Medications and Allergies Home Medications Medication Instructions Recorded Confirmed Type Albuterol Inhaler [Ventolin Hfa 2 puff INHALATION RT-Q6H PRN 04/09/14 04/26/23 History Inhaler] Albuterol Nebulized [Ventolin 2.5 mg INHALATION RT-QID PRN 04/09/14 04/26/23 History Nebulized] Citalopram Hydrobromide [CeleXA] 40 mg PO HS 09/23/15 04/26/23 History Mometasone/Formoterol [Dulera 200 2 puff INHALATION RT-BID 05/10/22 04/26/23 History Mcg-5 Mcg Inhaler] Montelukast [Singulair] 10 mg PO HS 05/10/22 04/26/23 History Pantoprazole [Protonix] 40 mg PO BID 05/10/22 04/26/23 History Topiramate 200 mg PO HS 05/10/22 04/26/23 History Dextroamphetamine/Amphetamine 20 mg PO DAILY 04/26/23 04/26/23 History [Adderall Xr 20 mg Capsule] Ethinyl Estradiol/Drospirenone 1 tab PO HS 04/26/23 04/26/23 History [Deysi 28 Tablet] Famotidine [Pepcid] 20 mg PO DAILY 04/26/23 04/26/23 History Metoclopramide [Reglan] 10 mg PO QID PRN 04/26/23 04/26/23 History Ondansetron [Zofran] 4 mg PO TID PRN 04/26/23 04/26/23 History Sucralfate [Carafate] 1 gm PO ACHS 04/26/23 04/26/23 History Allergies Allergy/AdvReac Type Severity Reaction Status Date / Time Egg Derived AdvReac CONGESTION Verified 04/26/23 13:14 milk AdvReac CONGESTION Verified 04/26/23 13:14 Surgical - Exam Vital Signs Temp Pulse Resp BP Pulse Ox 97.7 F 102 H 18 135/88 96 04/26/23 13:09 04/26/23 13:09 04/26/23 13:09 04/26/23 13:09 04/26/23 13:09 Results - Labs 04/27/23 05:26 04/27/23 05:26 Abnormal Lab Results - Last 24 Hours (Table) 04/26/23 04/26/23 04/27/23 Range/Units 14:03 14:03 05:26 Chloride 111 H (98-107) mmol/L Carbon Dioxide 18 L (22-30) mmol/L BUN 8.8 L (9.0-27.0) mg/dL BUN/Creatinine Ratio 11.00 L (12.00-20.00) Ratio ALT 41 H (4-34) U/L Urine Appearance Cloudy H (Clear) Ur Leukocyte Esterase Small H (Negative) Ur Squamous Epith Cells 20 H (0-4) /hpf Urine Bacteria Occasional H (None) /hpf Urine Mucus Moderate H (None) /hpf Diabetes panel 04/26/23 04/27/23 Range/Units 14:03 05:26 Sodium 139 140 (137-145) mmol/L Potassium 3.7 4.2 (3.5-5.1) mmol/L Chloride 111 H 107 (98-107) mmol/L Carbon Dioxide 18 L 22.0 (22-30) mmol/L BUN 10 8.8 L (7-17) mg/dL Creatinine 0.78 0.8 (0.52-1.04) mg/dL Glucose 89 82 (74-99) mg/dL Calcium 9.4 9.5 (8.4-10.2) mg/dL AST 30 24 (14-36) U/L ALT 41 H 39 (4-34) U/L Alkaline Phosphatase 73 60 (38-126) U/L Total Protein 6.8 6.4 (6.3-8.2) g/dL Albumin 3.8 4.0 (3.5-5.0) g/dL Calcium panel 04/26/23 04/27/23 Range/Units 14:03 05:26 Calcium 9.4 9.5 (8.4-10.2) mg/dL Phosphorus 3.3 4.2 (2.5-4.5) mg/dL Albumin 3.8 4.0 (3.5-5.0) g/dL Pituitary panel 04/26/23 04/27/23 Range/Units 14:03 05:26 Sodium 139 140 (137-145) mmol/L Potassium 3.7 4.2 (3.5-5.1) mmol/L Chloride 111 H 107 (98-107) mmol/L Carbon Dioxide 18 L 22.0 (22-30) mmol/L BUN 10 8.8 L (7-17) mg/dL Creatinine 0.78 0.8 (0.52-1.04) mg/dL Glucose 89 82 (74-99) mg/dL Calcium 9.4 9.5 (8.4-10.2) mg/dL Adrenal panel 04/26/23 04/27/23 Range/Units 14:03 05:26 Sodium 139 140 (137-145) mmol/L Potassium 3.7 4.2 (3.5-5.1) mmol/L Chloride 111 H 107 (98-107) mmol/L Carbon Dioxide 18 L 22.0 (22-30) mmol/L BUN 10 8.8 L (7-17) mg/dL Creatinine 0.78 0.8 (0.52-1.04) mg/dL Glucose 89 82 (74-99) mg/dL Calcium 9.4 9.5 (8.4-10.2) mg/dL Total Bilirubin 0.5 0.3 (0.2-1.3) mg/dL AST 30 24 (14-36) U/L ALT 41 H 39 (4-34) U/L Alkaline Phosphatase 73 60 (38-126) U/L Total Protein 6.8 6.4 (6.3-8.2) g/dL Albumin 3.8 4.0 (3.5-5.0) g/dL
[2023-04-27] MEDS: PIPERACILLIN-TAZOBACTAM 3.375 GM in SODIUM CHLORIDE 0.9% 100 ML IVPB SCH ×2 (12:16→20:40)
--- NOTE | 2023-04-27 13:50 | P.CRDCN ---
History of Present Illness Consult date: 04/27/23 Reason for Consult (text): Surgical clearance History of present illness: History of present illness: This is a 32-year-old with no previous cardiac history. She has a past medical history of asthma. We have been asked to evaluate the patient for preop clearance for laparoscopic cholecystectomy. Patient denies having any chest pain, no shortness of breath, no lightheadedness or dizziness. Blood pressure is 109/70, heart rate is in the 80s, blood 94% on room air. EKG sinus rhythm with no ST changes. Home cardiac medications:None Review Of Systems: At the time of my exam: CONSTITUTIONAL: Denies fever or chills. CARDIOVASCULAR: Denies chest pain, Denies shortness of breath, no orthopnea, PND or palpitations. RESPIRATORY: Denies cough. GASTROINTESTINAL: Denies abdominal pain, diarrhea, constipation, nausea or vomiting. MUSCULOSKELETAL: Denies myalgias. NEUROLOGIC: Denies numbness, tingling or weakness. ENDOCRINE: Denies fatigue, weight change, polydipsia or polyurina. GENITOURINARY: Denies burning, hematuria or urgency with micturation. HEMATOLOGIC: Denies history of anemia or bleeding. Physical examination: Gen: This is a morbidly obese 32-year-old female, resting in bed in no acute distress VS: reviewed HEENT: Head is atraumatic, normocephalic. Pupils equal, round. Sclerae is anicteric. NECK: Supple. No JVD. LUNGS: Clear to auscultation. No wheezes or rhonchi. No intercostal retractions. HEART: Regular rate and rhythm. No murmur. ABDOMEN: Soft EXTREMITIES: No pedal edema. No calf tenderness. NEUROLOGICAL: Patient is awake, alert and oriented x3. Assessment: Cholecystitis Asthma Plan: Patient is cleared from cardiology for surgical intervention with laparoscopic cholecystectomy. Patient is at average risk for complications from surgery and anesthesia. Obtain 2-D echocardiogram and Doppler study to assess cardiac structure and function Further recommendations to follow based upon clinical course Thank you kindly for this consultation. Nurse practitioner note has been reviewed, I agree with documented findings and plan of care. Patient was seen and examined. Past Medical History Past Medical History: Asthma Additional Past Medical History / Comment(s): Gastric ulcer, H Pylori 04/08 History of Any Multi-Drug Resistant Organisms: None Reported Past Surgical History: Hernia Repair, Orthopedic Surgery Additional Past Surgical History / Comment(s): rotator cuff and left knee Past Anesthesia/Blood Transfusion Reactions: No Reported Reaction Past Psychological History: Depression Smoking Status: Vaper Past Alcohol Use History: None Reported Past Drug Use History: None Reported Medications and Allergies Home Medications Medication Instructions Recorded Confirmed Type Albuterol Inhaler [Ventolin Hfa 2 puff INHALATION RT-Q6H PRN 04/09/14 04/26/23 History Inhaler] Albuterol Nebulized [Ventolin 2.5 mg INHALATION RT-QID PRN 04/09/14 04/26/23 History Nebulized] Citalopram Hydrobromide [CeleXA] 40 mg PO HS 09/23/15 04/26/23 History Mometasone/Formoterol [Dulera 200 2 puff INHALATION RT-BID 05/10/22 04/26/23 History Mcg-5 Mcg Inhaler] Montelukast [Singulair] 10 mg PO HS 05/10/22 04/26/23 History Pantoprazole [Protonix] 40 mg PO BID 05/10/22 04/26/23 History Topiramate 200 mg PO HS 05/10/22 04/26/23 History Dextroamphetamine/Amphetamine 20 mg PO DAILY 04/26/23 04/26/23 History [Adderall Xr 20 mg Capsule] Ethinyl Estradiol/Drospirenone 1 tab PO HS 04/26/23 04/26/23 History [Deysi 28 Tablet] Famotidine [Pepcid] 20 mg PO DAILY 04/26/23 04/26/23 History Metoclopramide [Reglan] 10 mg PO QID PRN 04/26/23 04/26/23 History Ondansetron [Zofran] 4 mg PO TID PRN 04/26/23 04/26/23 History Sucralfate [Carafate] 1 gm PO ACHS 04/26/23 04/26/23 History Allergies Allergy/AdvReac Type Severity Reaction Status Date / Time Egg Derived AdvReac CONGESTION Verified 04/26/23 13:14 milk AdvReac CONGESTION Verified 04/26/23 13:14 Physical Exam Vitals: Vital Signs Temp Pulse Pulse Resp BP BP Pulse Ox 04/27/23 08:30 18 04/27/23 07:14 98.4 F 85 18 109/70 94 L 04/27/23 01:55 98.5 F 87 18 119/76 97 04/26/23 20:39 98 F 85 17 131/86 93 L 04/26/23 19:45 98.7 F 98 16 132/78 96 04/26/23 13:09 97.7 F 102 H 18 135/88 96 Intake and Output 04/26/23 04/27/23 04/27/23 22:59 06:59 14:59 Other: # Voids 2 Weight 125.645 kg Results 04/27/23 05:26 04/27/23 05:26 Cardiac Enzymes 04/26/23 04/26/23 04/27/23 Range/Units 14:03 14:03 05:26 AST 30 24 (14-36) U/L Troponin I <0.012 (0.000-0.034) ng/mL Coagulation 04/26/23 Range/Units 14:03 PT 10.4 (10.0-12.5) sec APTT 26.4 (22.0-30.0) sec CBC 04/26/23 04/27/23 Range/Units 14:03 05:26 WBC 6.5 7.10 (3.8-10.6) k/uL RBC 4.48 4.15 (3.80-5.40) m/uL Hgb 13.8 12.6 (11.4-16.0) gm/dL Hct 40.2 37.8 (34.0-46.0) % Plt Count 233 238 (150-450) k/uL Comprehensive Metabolic Panel 04/26/23 04/27/23 Range/Units 14:03 05:26 Sodium 139 140 (137-145) mmol/L Potassium 3.7 4.2 (3.5-5.1) mmol/L Chloride 111 H 107 (98-107) mmol/L Carbon Dioxide 18 L 22.0 (22-30) mmol/L BUN 10 8.8 L (7-17) mg/dL Creatinine 0.78 0.8 (0.52-1.04) mg/dL Glucose 89 82 (74-99) mg/dL Calcium 9.4 9.5 (8.4-10.2) mg/dL AST 30 24 (14-36) U/L ALT 41 H 39 (4-34) U/L Alkaline Phosphatase 73 60 (38-126) U/L Total Protein 6.8 6.4 (6.3-8.2) g/dL Albumin 3.8 4.0 (3.5-5.0) g/dL Current Medications Generic Name Dose Route Start Last Admin Trade Name Freq PRN Reason Stop Dose Admin Budesonide/Formoterol Fumarate 2 puff 04/26/23 20:00 04/27/23 08:30 Symbicort 160-4.5 Mcg Inhaler INHALATION 2 puff RT-BID [facility] Administration Citalopram Hydrobromide 40 mg 04/26/23 21:00 04/26/23 20:32 Citalopram Hydrobromide 20 Mg Tab PO 40 mg HS [facility] Administration Famotidine 20 mg 04/27/23 09:00 04/27/23 08:34 Famotidine 20 Mg Tab PO 20 mg DAILY [facility] Administration Hydromorphone HCl 1 mg 04/26/23 16:48 04/27/23 09:48 Hydromorphone 1 Mg/Ml 1 Ml Syringe IVP 1 mg Q3HR PRN Administration Severe Pain (Scale 7 to 10) Sodium Chloride 1,000 mls @ 130 mls/hr 04/26/23 17:00 04/27/23 04:50 Saline 0.9% IV Not Given .[id number] [facility] Piperacillin Sod/Tazobactam 100 mls @ 25 mls/hr 04/27/23 12:00 Sod 3.375 gm/ Sodium Chloride IVPB Q8H [facility] Protocol Metoclopramide HCl 10 mg 04/26/23 17:49 Metoclopramide 10 Mg Tab PO QID PRN Nausea And Vomiting Montelukast Sodium 10 mg 04/26/23 21:00 04/26/23 20:32 Montelukast 10 Mg Tab PO 10 mg HS [facility] Administration Naloxone HCl 0.2 mg 04/26/23 16:48 Naloxone 0.4 Mg/Ml 1 Ml Vial IV Q2M PRN Opioid Reversal Albuterol Inhaler 60 2 puff 04/26/23 17:49 Puff Puff INHALATION RT-Q6H PRN Shortness Of Breath Dextroamphetamine/ 20 mg 04/27/23 09:00 04/27/23 09:15 Amphetamine [ PO Not Given Adderall Xr 20 Mg DAILY [facility] Capsule] 20 Mg Cap. Er Ethinyl Estradiol/ 1 tab 04/26/23 21:00 04/26/23 20:28 Drospirenone [Deysi 28 PO Not Given Tablet] 1 Each HS [facility] Tablet Ondansetron HCl 4 mg 04/27/23 11:24 Ondansetron 4 Mg/2 Ml Vial IVP Q6HR PRN Nausea And Vomiting Pantoprazole Sodium 40 mg 04/26/23 18:00 04/26/23 18:37 Pantoprazole 40 Mg Tablet PO 40 mg BID@0730,1730 [facility] Administration Sucralfate 1 gm 04/26/23 21:00 04/27/23 06:30 Sucralfate 1 Gm Tab PO 1 gm ACHS [facility] Administration Topiramate 200 mg 04/26/23 21:00 04/26/23 20:32 Topiramate 100 Mg Tab PO 200 mg HS [facility] Administration Intake and Output 04/26/23 04/27/23 04/27/23 22:59 06:59 14:59 Other: # Voids 2 Weight 125.645 kg 04/27/23 05:26 04/27/23 05:26
--- NOTE | 2023-04-27 17:16 | CA ---
Transthoracic Echo Report Name: Kaylynn Parisi Age: 32 Gender: F : 1990 Exam Date: 04/27/2023 12:16 Exam Location: [facility] Ht (in): Wt (lb): Ordering Physician: Vivien Pollard Attending/Referring Phys: Hand Paster Paul Johnson Procedure CPT: Indications: pre-op clearance Cardiac Hx: Technical Quality: Fair Contrast 1: Total Dose (mL): Contrast 2: Total Dose (mL): MEASUREMENTS (Male / Female) Normal Values 2D ECHO LV Diastolic Diameter PLAX 5.8 cm 4.2 - 5.9 / 3.9 - 5.3 cm LV Systolic Diameter PLAX 3.7 cm IVS Diastolic Thickness 1.0 cm 0.6 - 1.0 / 0.6 - 0.9 cm LVPW Diastolic Thickness 1.4 cm 0.6 - 1.0 / 0.6 - 0.9 cm LV Relative Wall Thickness 0.4 RV Internal Dim ED PLAX 2.9 cm LVOT Diameter 2.4 cm Aortic Root Diameter 2.9 cm LA Systolic Diameter LX 2.1 cm 3.0 - 4.0 / 2.7 - 3.8 cm LV Diastolic Volume MOD BP 73.0 cm??? 67 - 155 / 56 - 104 cm??? LV Systolic Volume MOD BP 31.9 cm??? 22 - 58 / 19 - 49 cm??? LV Ejection Fraction MOD BP 56.3 % >= 55 % LV Diastolic Volume MOD 4C 74.7 cm??? LV Systolic Volume MOD 4C 36.4 cm??? LV Ejection Fraction MOD 4C 51.3 % LV Diastolic Length 4C 7.1 cm LV Systolic Length 4C 5.9 cm LV Diastolic Volume MOD 2C 68.9 cm??? LV Systolic Volume MOD 2C 26.4 cm??? LV Ejection Fraction MOD 2C 61.7 % LV Diastolic Length 2C 6.8 cm LV Systolic Length 2C 5.5 cm LA Volume 31.2 cm??? 18 - 58 / 22 - 52 cm??? Ascending Aorta Diameter 3.0 cm DOPPLER AV Peak Velocity 103.5 cm/s AV Peak Gradient 4.3 mmHg AI Peak Velocity 162.8 cm/s AI Peak Gradient 10.6 mmHg AI Pressure Half Time 519.1 ms LVOT Peak Velocity 83.3 cm/s LVOT Peak Gradient 2.8 mmHg LVOT Velocity Time Integral 15.1 cm LVOT Stroke Volume 71.1 cm??? AV Area Cont Eq pk 3.8 cm??? MV Peak Velocity 88.5 cm/s MV Peak Gradient 3.1 mmHg MV Mean Velocity 52.1 cm/s MV Mean Gradient 1.3 mmHg MV Velocity Time Integral 26.3 cm MR Peak Velocity 190.5 cm/s MR Peak Gradient 14.5 mmHg Mitral E Point Velocity 61.6 cm/s Mitral A Point Velocity 74.4 cm/s Mitral E to A Ratio 0.8 MV Deceleration Time 168.0 ms MV E' Velocity 6.4 cm/s Mitral E to MV E' Ratio 9.7 PV Peak Velocity 81.8 cm/s PV Peak Gradient 2.7 mmHg FINDINGS Left Ventricle Mildly enlarged LV shady. Normal wall thickness. Left ventricular ejection fraction is estimated at 55-60 %. Right Ventricle Normal right ventricular size. Right Atrium Right atrial dilatation. Left Atrium Mild left atrial dilatation. Mitral Valve Structurally normal mitral valve. No mitral stenosis. No mitral regurgitation. Aortic Valve Aortic valve not well visualized. Grossly normal AV. Trace AI. Tricuspid Valve Structurally normal tricuspid valve. Pulmonic Valve Pulmonic valve not well visualized. Trace PI. Pericardium Normal pericardium. Aorta Normal size aortic root and proximal ascending aorta. CONCLUSIONS Normal LV function Previewed by: Dr. Steve Womack MD (Electronically Signed) Final Date: 27 April 2023 17:15
[2023-04-27] MEDS: PANTOPRAZOLE 40 MG TABLET PO SCH (17:41)
[2023-04-27] MEDS: ETHINYL ESTRADIOL PO SCH (20:39)
[2023-04-27] MEDS: DROSPIRENONE PO SCH (20:39)
[2023-04-27] MEDS: TOPIRAMATE 100 MG TAB PO SCH (20:40)
[2023-04-27] MEDS: MONTELUKAST 10 MG TAB PO SCH (20:40)
[2023-04-27] MEDS: CITALOPRAM HYDROBROMIDE 20 MG TAB PO SCH (20:40)
[2023-04-28] MEDS: HYDROmorphone 1 MG/ML 1 ML SYRINGE IVP PRN ×5 (02:26→20:37)
[2023-04-28] MEDS: PIPERACILLIN-TAZOBACTAM 3.375 GM in SODIUM CHLORIDE 0.9% 100 ML IVPB SCH ×3 (03:53→22:20)
[2023-04-28] MEDS: PANTOPRAZOLE 40 MG TABLET PO SCH ×2 (06:42→20:31)
[2023-04-28] MEDS: SUCRALFATE 1 GM TAB PO SCH ×4 (06:42→20:38)
[2023-04-28] MEDS ORDERED: ceFAZolin 3 GM in SODIUM CHLORIDE 0.9% 100 ML IVPB PRN (07:00)
[2023-04-28 07:08] LABS: Basophils % (A) 1 %; Eosinophils # (A) 0.2 k/uL (0-0.7); Eosinophils % (A) 4 %; HCT 38.7 % (34.0-46.0); HGB 12.9 gm/dL (11.4-16.0); Lymphocytes # (A) 1.8 k/uL (1.0-4.8); Lymphocytes % (A) 38 %; MCH 30.7 pg (25.0-35.0); MCHC 33.4 g/dL (31.0-37.0); MCV 91.9 fL (80.0-100.0); Monocytes # (A) 0.3 k/uL (0-1.0); Monocytes % (A) 6 %; Neutrophils # (A) 2.4 k/uL (1.3-7.7); Neutrophils % (A) 49 %; Platelet Count 229 k/uL (150-450); RBC 4.21 m/uL (3.80-5.40); RDW 12.7 % (11.5-15.5); WBC 4.8 k/uL (3.8-10.6)
[2023-04-28 07:16] LABS: ALT 61 U/L (4-34); AST 52 U/L (14-36); African American GFR (CKD) >90 (>60 ml/min/1.73 sqM); Albumin 3.7 g/dL (3.5-5.0); Albumin/Globulin Ratio 1.2; Alkaline Phosphatase 60 U/L (38-126); Anion Gap 9 mmol/L; Blood Urea Nitrogen 6 mg/dL (7-17); Calcium 9.3 mg/dL (8.4-10.2); Carbon Dioxide 24 mmol/L (22-30); Chloride 108 mmol/L (98-107); Glucose 87 mg/dL (74-99); Non-African American GFR(CKD) 89 (>60 ml/min/1.73 sqM); Potassium 3.7 mmol/L (3.5-5.1); Sodium 141 mmol/L (137-145); Total Bilirubin 0.5 mg/dL (0.2-1.3); Total Protein 6.7 g/dL (6.3-8.2)
[2023-04-28] MEDS ORDERED: INDOCYANINE GREEN 25 MG VIAL IV STA (07:50)
[2023-04-28] MEDS ORDERED: HEPARIN SODIUM,PORCINE 5,000 UNIT/ML 1 ML VIAL SQ PRN (07:50)
[2023-04-28] MEDS: AMPHETAMINE PO SCH (08:01)
[2023-04-28] MEDS: DEXTROAMPHETAMINE PO SCH (08:01)
[2023-04-28] MEDS: FAMOTIDINE 20 MG TAB PO SCH (08:01)
[2023-04-28] MEDS: SYMBICORT 160-4.5 MCG INHALER INHALATION SCH ×2 (09:06→21:42)
[2023-04-28] MEDS: SODIUM CHLORIDE 0.9% 1,000 ML IV SCH ×3 (10:04→23:08)
[2023-04-28] MEDS: ONDANSETRON 4 MG/2 ML VIAL IVP PRN ×2 (10:04→23:07)
[2023-04-28] MEDS ORDERED: DEXAMETHASONE SOD PHOSPHATE 4 MG/ML 1 ML VIAL IV ONE (10:32)
[2023-04-28] MEDS ORDERED: ONDANSETRON 4 MG/2 ML VIAL IVP ONE ×2 (10:32→14:30)
--- NOTE | 2023-04-28 11:52 | P.PN ---
Subjective Progress Note Date: 04/28/23 Surgical clearance History of present illness: History of present illness: This is a 32-year-old with no previous cardiac history. She has a past medical history of asthma. We have been asked to evaluate the patient for preop clearance for laparoscopic cholecystectomy. Patient denies having any chest pain, no shortness of breath, no lightheadedness or dizziness. Blood pressure is 109/70, heart rate is in the 80s, blood 94% on room air. EKG sinus rhythm with no ST changes. Home cardiac medications:None 04/28 Echocardiogram reveals normal LV function. Blood pressure 138/66, heart rate in the 70s and 80s. Pulse ox 90% on room air. WBC 4.8, hemoglobin 12.9. Potassi um 3.7, creatinine 0.86. Physical examination: Gen: This is a morbidly obese 32-year-old female, resting in bed in no acute distress VS: reviewed HEENT: Head is atraumatic, normocephalic. Pupils equal, round. Sclerae is anicteric. NECK: Supple. No JVD. LUNGS: Clear to auscultation. No wheezes or rhonchi. No intercostal retractions. HEART: Regular rate and rhythm. No murmur. ABDOMEN: Soft EXTREMITIES: No pedal edema. No calf tenderness. NEUROLOGICAL: Patient is awake, alert and oriented x3. Assessment: Cholecystitis Asthma Plan: Patient is cleared from cardiology for surgical intervention with laparoscopic cholecystectomy. Patient is at average risk for complications from surgery and anesthesia. Cardiology will sign off this case and follow on an as-needed basis. Please reconsult for any new concerns. No follow up is necessary. Nurse practitioner note has been reviewed, I agree with documented findings and plan of care. Patient was seen and examined. Objective - Vital Signs Vital signs: Vital Signs Temp 98.9 F 04/28/23 07:08 Pulse 77 04/28/23 07:08 Resp 18 04/28/23 07:08 BP 138/66 04/28/23 07:08 Pulse Ox 98 04/28/23 07:08 FiO2 Intake & Output 04/27/23 04/28/23 04/28/23 18:59 06:59 18:59 Other: # Voids 1 - Labs CBC & Chem 7: 04/28/23 06:35 04/28/23 06:35 Labs: Abnormal Lab Results - Last 24 Hours (Table) 04/28/23 Range/Units 06:35 Chloride 108 H (98-107) mmol/L BUN 6 L (7-17) mg/dL AST 52 H (14-36) U/L ALT 61 H (4-34) U/L
[2023-04-28] MEDS ORDERED: LACTATED RINGERS 1,000 ML IV ONE ×2 (14:15→18:34)
[2023-04-28] MEDS ORDERED: DEXAMETHASONE SOD PHOSPHATE 4 MG/ML 1 ML VIAL IVP ONE (14:30)
[2023-04-28] MEDS ORDERED: diphenhydrAMINE 50 MG/ML 1 ML VIAL ONE (14:42)
[2023-04-28] MEDS ORDERED: diphenhydrAMINE 50 MG/ML 1 ML VIAL IVP ONE (14:47)
[2023-04-28] MEDS ORDERED: IPRATROPIUM-ALBUTEROL 3 ML NEB INHALATION STA (15:11)
[2023-04-28] MEDS ORDERED: HYDROmorphone 0.5 MG/0.5 ML SYRINGE IVP ONE (17:55)
[2023-04-28] MEDS ORDERED: GLYCOPYRROLATE 0.2 MG/ML 2 ML VIAL ONE (18:11)
[2023-04-28] MEDS ORDERED: SUCCINYLCHOLINE CHLORIDE 200 MG/10 ML VIAL IV ONE (18:11)
[2023-04-28] MEDS ORDERED: MIDAZOLAM 2 MG/2 ML VIAL ONE (18:11)
[2023-04-28] MEDS ORDERED: fentaNYL (PF) 50 MCG/ML 2 ML AMP ONE (18:11)
[2023-04-28] MEDS ORDERED: LIDOCAINE 1% INJ 10MG/ML (20 ML MDV) ONE (18:11)
[2023-04-28] MEDS ORDERED: NEOSTIGMINE 1 MG/ML 10 ML VIAL ONE (18:11)
[2023-04-28] MEDS ORDERED: PROPOFOL 10 MG/ML 20 ML VIAL IV ONE (18:11)
[2023-04-28] MEDS ORDERED: ROCURONIUM 10 MG/ML (5 ML VIAL) IV ONE (18:11)
[2023-04-28] MEDS ORDERED: LIDOCAINE 0.5%-EPI 1:200,000 50 ML VIAL SQ ONE ×2 (18:33→18:36)
--- NOTE | 2023-04-28 19:59 | P.OP ---
Date of Procedure: 04/28/23 Description of Procedure: SURGEON: DANY GALARZA MD PREOPERATIVE DIAGNOSES: 1. Acute cholecystitis 2. Right upper quadrant abdominal pain 3. Morbid obesity due to excess calories, BMI 43.4 4. Depressive disorder 5. Gastroesophageal reflux disease 6. Asthma POSTOPERATIVE DIAGNOSES: 1. Acute cholecystitis 2. Right upper quadrant abdominal pain 3. Morbid obesity due to excess calories, BMI 43.4 4. Depressive disorder 5. Gastroesophageal reflux disease 6. Asthma 7. Peritoneal adhesions 8. Hepatomegaly with fatty liver disease OPERATION: 1. Robotic-assisted da José Antonio Xi laparoscopic cholecystectomy, multiport with FIREFLY ESTIMATED BLOOD LOSS: 5 mL. SPECIMENS REMOVED: Gallbladder. COMPLICATIONS: None. OPERATIVE FINDINGS: 1. Moderate scarring over gallbladder with peritoneal adhesions, pericholecystic with features of chronic cholecystitis 2. Severe hepatomegaly with fatty liver disease INDICATIONS: The patient is a 32-year-old female who presents with symptomatic gallstones. Robotic assisted laparoscopic approach was described. Benefits and risks of the procedure including but not limited to bleeding, infection, injury to the biliary tree was described. Informed consent was obtained. DESCRIPTION OF PROCEDURE: Patient was brought to the operating room, placed in supine position. After general induction, the abdomen had been prepped and draped in standard sterile fashion. The robotic da José Antonio XI system was primed. After a timeout protocol was performed, the patient had been prepped and draped in standard sterile fashion. The patient was injected with indocyanine green. A 5 mm 0 degrees laparoscopic trocar entry was performed along the left upper quadrant. The abdomen insufflated to 15 mmHg pressure which was tolerated well. Diagnostic laparoscopy demonstrated no injury to bowel viscera or mesentery. The liver surface demonstrated severe fatty liver disease including hepatomegaly. Next, two 8 mm robotic ports were placed along the right upper abdomen. The camera 8-mm port was maintained along the epigastrium. Another 8 mm port was placed along the left upper abdominal wall after exchanging the 5 mm port. Please note that the ports were placed at least 10 to 15 cm away from the target anatomy of the gallbladder. The robot was docked along the left lateral abdomen. The patient was repositioned in reverse Trendelenburg position. Using a grasper for arm 3, a grasper for arm 4, including hook cautery for arm 1 , the robotic system was docked and primed as described. Instruments were interchanged by the shop assistant including hook cautery, Bovie cautery and clip appliers. I had sat at the console. The gallbladder was scarred with peritoneal adhesions. Lysis of adhesions was performed to free the gallbladder from the surrounding tissues. Next attention was brought to the infundibulum and cystic structures. The infundibulum and cystic duct were dissected free from surrounding tissues. The cystic duct was isolated. FIREFLY was used to identify the cystic artery and cystic structures. A critical view of safety was obtained. Large PLASTIC clips were used throughout the entire case. Using a clip dye weigher, 2 clips were placed at the junction of the infundibulum and cystic duct. The cystic duct was divided between clips. Next, the cystic artery was similarly clipped and cauterized. Electro-Bovie cautery was used to remove the gallbladder from the hepatic fossa. Hemostasis was checked and found to be adequate. The robot was undocked. I re-scrubbed into the case. Using a 10 mm Endo Catch bag via the left upper quadrant incision, the specimen was removed from the abdominal cavity after wiping the incision. All pneumoperitoneum instruments were evacuated from the abdominal cavity. The incisions were reapproximated using 4-0 Monocryl in an interrupted subcuticular fashion. Left upper quadrant incision was oversewn using 0 Vicryl in Dimitrios Prado. Fascial defects were less than 8 mm in size. Please note along the trocar sites, local anesthetic was placed as a field block prior to insertion of all instruments. Liquid glue was applied to the skin. At the end of the procedure needle, sponge, and instrument count had been verified correct by the surgical sales representative. The patient was transferred to postanesthesia care unit in stable condition. Intraoperative films were shared with the patient's family.
[2023-04-28] MEDS ORDERED: ACETAMINOPHEN IV (For NPO) 1,000 MG in EMPTY BAG 1 BAG IVPB ONE (20:02)
[2023-04-28] MEDS ORDERED: ACETAMINOPHEN IV (For NPO) 1,000 MG/100 ML VIAL IVPB ONE (20:16)
[2023-04-28] MEDS: ETHINYL ESTRADIOL PO SCH (20:38)
[2023-04-28] MEDS: CITALOPRAM HYDROBROMIDE 20 MG TAB PO SCH (20:38)
[2023-04-28] MEDS: MONTELUKAST 10 MG TAB PO SCH (20:38)
[2023-04-28] MEDS: DROSPIRENONE PO SCH (20:38)
[2023-04-28] MEDS: TOPIRAMATE 100 MG TAB PO SCH (20:38)
[2023-04-28] MEDS: LACTATED RINGERS 1,000 ML IV SCH (22:21)
[2023-04-28] MEDS: KETOROLAC 15 MG/ML 1 ML VIAL IVP SCH (23:09)
[2023-04-29] MEDS: HYDROmorphone 1 MG/ML 1 ML SYRINGE IVP PRN ×5 (00:01→20:47)
[2023-04-29] MEDS: PIPERACILLIN-TAZOBACTAM 3.375 GM in SODIUM CHLORIDE 0.9% 100 ML IVPB SCH ×3 (03:37→20:30)
--- NOTE | 2023-04-29 04:29 | PN ---
PROGRESS NOTE CHIEF COMPLAINT: Abdominal pain and subacute cholecystitis. HISTORY OF PRESENT ILLNESS: This lady is going to the operating room today for cholecystectomy. PHYSICAL EXAMINATION: CHEST: Clear. CARDIAC: Normal. IMPRESSION: Subacute cholecystitis and cholelithiasis. PLAN: Surgery today. BRANDI / FATUMAN: [id number] /
[2023-04-29] MEDS: SUCRALFATE 1 GM TAB PO SCH ×4 (06:02→20:30)
[2023-04-29] MEDS: PANTOPRAZOLE 40 MG TABLET PO SCH ×2 (06:02→16:58)
[2023-04-29] MEDS: KETOROLAC 15 MG/ML 1 ML VIAL IVP SCH ×4 (06:02→23:06)
[2023-04-29] MEDS: SODIUM CHLORIDE 0.9% 1,000 ML IV SCH ×3 (06:03→22:26)
[2023-04-29] MEDS ORDERED: HYDROmorphone 0.5 MG/0.5 ML SYRINGE IVP PRN (07:00)
[2023-04-29] MEDS ORDERED: ONDANSETRON 4 MG/2 ML VIAL IVP PRN (07:00)
[2023-04-29] MEDS: AMPHETAMINE PO SCH (07:54)
[2023-04-29] MEDS: DEXTROAMPHETAMINE PO SCH (07:54)
[2023-04-29] MEDS: ONDANSETRON 4 MG/2 ML VIAL IVP PRN (07:59)
[2023-04-29] MEDS: HEPARIN SODIUM,PORCINE 5,000 UNIT/ML 1 ML VIAL SQ SCH ×2 (07:59→20:30)
[2023-04-29] MEDS: FAMOTIDINE 20 MG TAB PO SCH (08:00)
[2023-04-29] MEDS: LACTATED RINGERS 1,000 ML IV SCH (08:00)
[2023-04-29] MEDS: SYMBICORT 160-4.5 MCG INHALER INHALATION SCH ×2 (08:51→21:24)
[2023-04-29 10:11] LABS: Basophils # (A) 0.02 X 10*3/uL (0.00-0.10); Basophils % (A) 0.2 %; Eosinophils # (A) 0.03 X 10*3/uL (0.04-0.35); Eosinophils % (A) 0.3 %; HCT 38.1 % (37.2-46.3); HGB 12.5 g/dL (12.0-15.0); Lymphocytes # (A) 1.71 X 10*3/uL (0.90-5.00); Lymphocytes % (A) 17.1 %; MCH 30.3 pg (27.0-32.0); MCHC 32.8 g/dL (32.0-37.0); MCV 92.5 FL (80.0-97.0); Mean Platelet Volume 11.4 FL (9.5-12.2); Monocytes # (A) 0.65 X 10*3/uL (0.20-1.00); Monocytes % (A) 6.5 %; NRBC Per 100 WBC 0 X 10*3/uL (0.00-0.01); Neutrophils # (A) 7.58 X 10*3/uL (1.80-7.70); Neutrophils % (A) 75.6 %; Platelet Count 242 X 10*3/uL (140-440); RBC 4.12 X 10*6/uL (4.10-5.20); RDW 12.7 % (11.5-14.5); WBC 10.02 X 10*3/uL (4.50-10.00)
[2023-04-29 10:23] LABS: BUN/Creat Ratio 7.12 Ratio (12.00-20.00); Blood Urea Nitrogen 5.7 mg/dL (9.0-27.0); Glucose 99 mg/dL (70-110)
[2023-04-29 10:24] LABS: ALT 84 U/L (8-44); AST 72 U/L (13-35); Albumin 3.8 g/dL (3.8-4.9); Albumin/Globulin Ratio 1.52 Ratio (1.60-3.17); Alkaline Phosphatase 58 U/L (41-126); Carbon Dioxide 19.9 mmol/L (21.6-31.8); Chloride 107 mmol/L (96-109); Globulin 2.5 g/dL (1.6-3.3); Potassium 3.6 mmol/L (3.5-5.5); Sodium 138 mmol/L (135-145); Total Bilirubin 0.3 mg/dL (0.3-1.2); Total Protein 6.3 g/dL (6.2-8.2)
--- NOTE | 2023-04-29 14:29 | P.PN ---
Subjective Progress Note Date: 04/29/23 NAEON. Well controlled abdominal pain. No F/C. No SOB or CP. Admits to flatus, no bm. Tolerating diet. Ambulatory and voiding. Objective - Vital Signs Vital signs: Vital Signs Temp 97.7 F 04/29/23 07:20 Pulse 94 04/29/23 07:20 Resp 18 04/29/23 07:20 BP 124/80 04/29/23 07:20 Pulse Ox 93 L 04/29/23 07:20 FiO2 Intake & Output 04/28/23 04/29/23 04/29/23 18:59 06:59 18:59 Intake Total 500 0 Output Total 5 Balance 500 -5 Intake: IV 500 0 Output: Estimated Blood Loss 5 Other: # Voids 2 2 - Exam Gen: AxO, NAD Pulm: non-labored respirations Abd: soft, mildly-tender around incisions, non-distended. No guarding/rebound/rigidity Incisions: C/D/I, no fluctuence or erythema appreciated Extrem: no edema seen - Labs CBC & Chem 7: 04/29/23 05:50 04/29/23 05:50 Labs: Abnormal Lab Results - Last 24 Hours (Table) 04/29/23 04/29/23 Range/Units 05:50 05:50 WBC 10.02 H (4.50-10.00) X 10*3/uL Eosinophils # 0.03 L (0.04-0.35) X 10*3/uL Carbon Dioxide 19.9 L (21.6-31.8) mmol/L BUN 5.7 L (9.0-27.0) mg/dL BUN/Creatinine Ratio 7.12 L (12.00-20.00) Ratio AST 72 H (13-35) U/L ALT 84 H (8-44) U/L Albumin/Globulin Ratio 1.52 L (1.60-3.17) Ratio Assessment and Plan Assessment: Patient is a 32 year old female who is s/p laparoscopic cholecystectomy Plan: -Diet as tolerated -PRN pain and nausea control -Encourage ambulation -DVT/GI Ppx -Okay to DC home from surgical standpoint Ric Barbosa MD General Surgery
[2023-04-29] MEDS: TOPIRAMATE 100 MG TAB PO SCH (20:29)
[2023-04-29] MEDS: DROSPIRENONE PO SCH (20:29)
[2023-04-29] MEDS: ETHINYL ESTRADIOL PO SCH (20:29)
[2023-04-29] MEDS: CITALOPRAM HYDROBROMIDE 20 MG TAB PO SCH (20:30)
[2023-04-29] MEDS: MONTELUKAST 10 MG TAB PO SCH (20:30)
--- NOTE | 2023-04-29 23:02 | HP ---
HISTORY AND PHYSICAL CHIEF COMPLAINT: Abdominal pain. HISTORY OF PRESENT ILLNESS: This is the first known admission for this 32-year-old overweight female, who has been having right upper quadrant pain on and off for an extended period of time. She has been determined to have gallbladder sludge and has come in for an elective cholecystectomy. REVIEW OF SYSTEMS: She has had no nausea, vomiting, jaundice, diarrhea, acholic stools, etc. Past medical history, family history, and personal and social histories are all otherwise unremarkable or noncontributory. PHYSICAL EXAMINATION: VITAL SIGNS: Blood pressure is 132/78 with a pulse of 86, respirations 19. She is afebrile. GENERAL: She appeared to be in no acute distress. SKIN: Color was normal. HEAD, EARS, EYES, NOSE, MOUTH AND THROAT: Normal. Neck veins are not distended. CHEST: Clear. CARDIAC: Normal. ABDOMEN: Slightly protuberant and she is tender over the epigastrium. Bowel sounds are present. EXTREMITIES: Normal. NEUROLOGIC: Intact. ASSESSMENT: She is admitted to the hospital with diagnosis of; 1. Subacute cholecystitis. PLAN: 1. Bedrest. 2. IV fluids. 3. Surgical consult for cholecystectomy. MMODL / IJN: [id number] /
[2023-04-30] MEDS: HYDROmorphone 1 MG/ML 1 ML SYRINGE IVP PRN ×3 (00:48→08:50)
[2023-04-30 01:16] VITALS: TEMP 98.4
[2023-04-30] MEDS: SODIUM CHLORIDE 0.9% 1,000 ML IV SCH ×2 (04:55→09:02)
[2023-04-30] MEDS: PIPERACILLIN-TAZOBACTAM 3.375 GM in SODIUM CHLORIDE 0.9% 100 ML IVPB SCH ×2 (04:56→11:18)
[2023-04-30] MEDS: KETOROLAC 15 MG/ML 1 ML VIAL IVP SCH ×2 (05:55→11:19)
[2023-04-30 07:47] VITALS: BP 122/80; PULSE 76; RESP 17
[2023-04-30] MEDS: AMPHETAMINE PO SCH (07:54)
[2023-04-30] MEDS: LACTATED RINGERS 1,000 ML IV SCH (07:54)
[2023-04-30] MEDS: DEXTROAMPHETAMINE PO SCH (07:54)
[2023-04-30] MEDS: SUCRALFATE 1 GM TAB PO SCH ×2 (07:57→11:31)
[2023-04-30] MEDS: FAMOTIDINE 20 MG TAB PO SCH (07:57)
[2023-04-30] MEDS: PANTOPRAZOLE 40 MG TABLET PO SCH (07:57)
[2023-04-30] MEDS: HEPARIN SODIUM,PORCINE 5,000 UNIT/ML 1 ML VIAL SQ SCH (07:57)
[2023-04-30] MEDS: SYMBICORT 160-4.5 MCG INHALER INHALATION SCH (08:41)
--- NOTE | 2023-04-30 12:51 | P.PN ---
Subjective Progress Note Date: 04/30/23 She reports resolved RUQ pain. She is tolerating diet. No fevers or chills. Features of severe fatty liver disease with change in diet addressed with outpatient follow-up. All questions addressed. Stable for discharge. Pictures of surgery reviewed. Objective - Vital Signs Vital signs: Vital Signs Temp 98.4 F 04/30/23 07:07 Pulse 76 04/30/23 07:07 Resp 17 04/30/23 07:07 BP 122/80 04/30/23 07:07 Pulse Ox 97 04/30/23 07:07 FiO2 Intake & Output 04/29/23 04/30/23 04/30/23 18:59 06:59 18:59 Other: # Voids 2 2 1 - Labs CBC & Chem 7: 04/29/23 05:50 04/29/23 05:50
--- NOTE | 2023-05-01 00:49 | DS ---
DISCHARGE SUMMARY CHIEF COMPLAINT: Abdominal pain and gallbladder disease. HISTORY OF PRESENT ILLNESS AND PHYSICAL EXAMINATION: Details of this lady's history and physical can be found in the initial workup. LABORATORY STUDIES: While she was in the hospital, she had laboratory studies, details of which can be found in the laboratory section of her chart. COURSE IN THE HOSPITAL: After admission, she was placed on bedrest, started on intravenous fluids, and taken to the operating room for cholecystectomy. Postoperatively, she did well. She had a brief ileus for a day or so, when she did not pass gas or have a bowel movement. She had no fever or chills. While in the hospital, her liver functions preethi very slightly. She is cleared by the surgeon for discharge on the and she will follow up in the office in several days. FINAL DIAGNOSES: 1. Subacute cholecystitis. 2. Ileus. 3. Elevated liver function studies. OPERATIONS: Cholecystectomy. CONSULTATIONS: General Surgery. She is improved. BRANDI / FATUMAN: [id number] /
--- NOTE | 2023-05-01 01:28 | PN ---
PROGRESS NOTE DATE OF SERVICE: 04/26/2023 CHIEF COMPLAINT: Abdominal pain. HISTORY OF PRESENT ILLNESS: This lady is being evaluated by Surgery and will likely be going for cholecystectomy. PHYSICAL EXAMINATION: ABDOMEN: She is tender in the upper abdomen. CHEST: Clear. CARDIAC: Normal. IMPRESSION: Cholecystitis and cholelithiasis. PLAN: Cholecystectomy. MMODL / IJN: [id number] /
--- NOTE | 2023-05-01 04:20 | PN ---
PROGRESS NOTE DATE OF SERVICE: 04/29/2023 CHIEF COMPLAINT: Status post cholecystectomy. HISTORY OF PRESENT ILLNESS: This lady is postop. She is still having significant left upper quadrant pain. She has not passed any gas or had any bowel movement. Her liver enzymes are also slightly elevated. PHYSICAL EXAMINATION: GENERAL: She is not jaundiced. CHEST: Clear. CARDIAC: Normal. EXTREMITIES: Incisions appear to be dry. IMPRESSION: 1. Post cholecystectomy. 2. Left upper quadrant pain. 3. Slightly elevated liver function studies. PLAN: Discharge once she has eliminated either gas or stool while watching her liver function studies. MMODL / IJN: [id number] /
--- NOTE | 2023-05-01 04:43 | PN ---
PROGRESS NOTE DATE OF SERVICE: 04/27/2023 CHIEF COMPLAINT: Abdominal pain. HISTORY OF PRESENT ILLNESS: This lady is going to the operating room for her gallbladder. PHYSICAL EXAMINATION: CHEST: Clear. CARDIAC: Normal and she is slightly tender in the right upper quadrant. IMPRESSION: Subacute cholecystitis. PLAN: Surgery today. MMODL / FATUMAN: [id number] /
--- NOTE | 2023-05-01 07:55 | PN ---
PROGRESS NOTE DATE OF SERVICE: 04/28/2023 CHIEF COMPLAINT: Gallbladder disease. HISTORY OF PRESENT ILLNESS: This lady is doing fairly well. She is still having a fair amount of pain. She has had no fever or chills. PHYSICAL EXAMINATION: CHEST: Clear. CARDIAC: Normal. ABDOMEN: Surgical sites are dry. Bowel sounds are heard. IMPRESSION: Cholecystitis. PLAN: Continue with IV fluids as well as analgesics until she is stable enough to be discharged. MMODL / IJN: [id number] /
== END 2023-04-30 13:00 | disposition home or self-care (01) | DRG 263 ==
LOC: EC 13:03 → 4SSUR 16:52 → OBSVTOIN 16:52 → 4SSUR 18:49 → UNDODISOB 04-30 13:00
PROVIDERS: ADMIT Family Medicine; ATTEND Family Medicine
PROC: BF50200 Other Imaging of Bile Ducts using Fluorescing Agent, Indocyanine Green Dye, Intraoperative (ICD-10-PCS; principal; 2023-04-28 09:15)
PROC: 8E0W4CZ Robotic Assisted Procedure of Trunk Region, Percutaneous Endoscopic Approach (ICD-10-PCS; principal; 2023-04-28 09:15)
PROC: 0FT44ZZ Resection of Gallbladder, Percutaneous Endoscopic Approach (ICD-10-PCS; principal; 2023-04-28 09:15)
DX: K81.0 Acute cholecystitis (principal); K82.1 Hydrops of gallbladder; K76.0 Fatty (change of) liver, not elsewhere classified; E66.01 Morbid (severe) obesity due to excess calories; Z68.41 Body mass index [BMI] 40.0-44.9, adult; F32.A Depression, unspecified; K56.7 Ileus, unspecified; K81.1 Chronic cholecystitis; R16.0 Hepatomegaly, not elsewhere classified; J45.909 Unspecified asthma, uncomplicated; K66.0 Peritoneal adhesions (postprocedural) (postinfection); K82.8 Other specified diseases of gallbladder; E86.0 Dehydration; R94.5 Abnormal results of liver function studies; K21.9 Gastro-esophageal reflux disease without esophagitis; Z79.51 Long term (current) use of inhaled steroids; Z79.899 Other long term (current) drug therapy; Z87.11 Personal history of peptic ulcer disease
CPT/HCPCS: 36415; 76705; 80053; 81001; 81025; 83690; 83735; 84100; 84484; 85025; 85610; 85730; 88304; 93005; 93306; 94640; 96361; 96374; 96375; 96376; 99285

== ENCOUNTER 2023-05-12 12:14 | Emergency (ER) | payer OTHER ==
[2023-05-12] MEDS ORDERED: HYDROmorphone 0.5 MG/0.5 ML SYRINGE IVP STA (13:37)
[2023-05-12] MEDS ORDERED: SODIUM CHLORIDE 0.9% 1,000 ML IV ONE (13:37)
[2023-05-12] MEDS ORDERED: ONDANSETRON 4 MG/2 ML VIAL IVP STA (13:37)
--- NOTE | 2023-05-12 13:45 | ED ---
Abdominal Pain HPI - General Chief Complaint: Abdominal Pain Stated Complaint: vomiting Time Seen by Provider: 05/12/23 13:17 Source: patient, family Mode of arrival: ambulatory Limitations: no limitations - History of Present Illness Initial Comments: 's patient is a 32-year-old woman who arrives to have evaluation of right upper quadrant abdominal pain and vomiting. The patient relates that she had laparoscopic cholecystectomy 2 weeks ago today by Dr. Tong. Patient states that since leaving the hospital, she has continued to have vomiting and some right upper quadrant pain. She has followed with her physician and was told that some of her lab tests were high suggesting a bile duct obstruction. When the symptoms continued through today and she is not able tolerate much oral, she comes to have further evaluation. MD Complaint: abdominal pain Onset/Timin -: week(s) Location: RUQ Radiation: none Migration to: no migration Severity: moderate Quality: aching Consistency: constant Improves With: nothing Worsens With: nothing Associated Symptoms: nausea, vomiting - Related Data Home Medications Medication Instructions Recorded Confirmed Albuterol Inhaler [Ventolin Hfa 2 puff INHALATION RT-Q6H PRN 04/09/14 04/26/23 Inhaler] Albuterol Nebulized [Ventolin 2.5 mg INHALATION RT-QID PRN 04/09/14 04/26/23 Nebulized] Citalopram Hydrobromide [CeleXA] 40 mg PO HS 09/23/15 04/26/23 Mometasone/Formoterol [Dulera 200 2 puff INHALATION RT-BID 05/10/22 04/26/23 Mcg-5 Mcg Inhaler] Montelukast [Singulair] 10 mg PO HS 05/10/22 04/26/23 Pantoprazole [Protonix] 40 mg PO BID 05/10/22 04/26/23 Topiramate 200 mg PO HS 05/10/22 04/26/23 Dextroamphetamine/Amphetamine 20 mg PO DAILY 04/26/23 04/26/23 [Adderall Xr 20 mg Capsule] Ethinyl Estradiol/Drospirenone 1 tab PO HS 04/26/23 04/26/23 [Deysi 28 Tablet] Famotidine [Pepcid] 20 mg PO DAILY 04/26/23 04/26/23 Metoclopramide [Reglan] 10 mg PO QID PRN 04/26/23 04/26/23 Ondansetron [Zofran] 4 mg PO TID PRN 04/26/23 04/26/23 Sucralfate [Carafate] 1 gm PO ACHS 04/26/23 04/26/23 Previous Rx's Medication Instructions Recorded Acetaminophen Tab [Tylenol Tab] 1,000 mg PO Q6HR PRN #30 tablet 04/28/23 Ibuprofen [Motrin] 600 mg PO Q8HR PRN #30 tab 04/28/23 Simethicone [Gas-X] 125 mg PO AC-TID PRN #20 capsule 04/28/23 Ondansetron Odt [Zofran ODT] 4 mg PO Q8HR PRN #10 tab 05/12/23 Allergies Allergy/AdvReac Type Severity Reaction Status Date / Time No Known Allergies Allergy Verified 05/12/23 13:15 Review of Systems ROS Statement: Those systems with pertinent positive or pertinent negative responses have been documented in the HPI. ROS Other: All systems not noted in ROS Statement are negative. Constitutional: Reports: chills. Denies: fever, weakness Respiratory: Denies: cough, dyspnea Cardiovascular: Denies: chest pain, palpitations, edema Gastrointestinal: Reports: abdominal pain, nausea, vomiting. Denies: diarrhea, constipation, melena, hematochezia Genitourinary: Denies: dysuria, hematuria Musculoskeletal: Denies: back pain Skin: Denies: rash Neurological: Denies: headache, weakness, numbness Past Medical History Past Medical History: Asthma Additional Past Medical History / Comment(s): Gastric ulcer, H Pylori 04/08 History of Any Multi-Drug Resistant Organisms: None Reported Past Surgical History: Cholecystectomy, Hernia Repair, Orthopedic Surgery Additional Past Surgical History / Comment(s): rotator cuff and left knee Past Anesthesia/Blood Transfusion Reactions: No Reported Reaction Past Psychological History: Depression Smoking Status: Vaper Past Alcohol Use History: None Reported Past Drug Use History: None Reported General Exam Limitations: no limitations General appearance: alert, in no apparent distress Head exam: Present: atraumatic, normocephalic Eye exam: Present: normal appearance. Absent: scleral icterus, conjunctival injection Neck exam: Present: normal inspection Respiratory exam: Present: normal lung sounds bilaterally. Absent: respiratory distress, wheezes, rales, rhonchi, stridor, accessory muscle use Cardiovascular Exam: Present: normal rhythm, tachycardia, normal heart sounds. Absent: systolic murmur, diastolic murmur, rubs, gallop GI/Abdominal exam: Present: soft, tenderness. Absent: distended, guarding, rebound, rigid, mass, pulsatile mass, hernia Extremities exam: Present: normal inspection, normal capillary refill. Absent: pedal edema, calf tenderness Back exam: Present: normal inspection. Absent: CVA tenderness (R), CVA tenderness (L) Neurological exam: Present: alert Skin exam: Present: warm, dry, intact, normal color. Absent: rash Course Vital Signs 05/12/23 05/12/23 05/12/23 13:10 15:33 16:09 Temperature 98.1 F 98.5 F Pulse Rate 114 H 92 Respiratory 18 18 Rate Blood Pressure 135/90 123/93 O2 Sat by Pulse 98 96 Oximetry Medical Decision Making - Medical Decision Making The patient had ultrasound of the abdomen which I interpreted to show no gross enlargement of the bile duct Was pt. sent in by a medical professional or institution (, PA, FLEXOGRAPHIC PRESS OPERATOR, urgent care, hospital, or [place] health care facility...) When possible be specific @ -[No] Did you speak to anyone other than the patient for history (EMS, parent, family, police, friend...)? What history was obtained from this source @ -[No] Did you review nursing and triage notes (agree or disagree)? Why? @ -[I reviewed and agree with nursing and triage notes] Were old charts reviewed (outside hosp., previous admission, EMS record, old EKG, old radiological studies, urgent care reports/EKG's, [place] health care facility records)? Report findings @ -[Yes charts were reviewed] Differential Diagnosis (chest pain, altered mental status, abdominal pain women, abdominal pain men, vaginal bleeding, weakness, fever, dyspnea, syncope, headache, dizziness, GI bleed, back pain, seizure, CVA, palpatations, mental health, musculoskeletal)? @ -[Differential Abdominal Pain Women: Appendicitis, Cholecystitis, diverticulosis, ischemic bowel, pancreatitis, hepa titis, UTI, gastroenteritis, AAA, incarcerated hernia, bowel obstruction, constipation, inflammatory bowel, hepatitis, peptic ulcer disease, splenic infarction, perforated viscus, vulvitis, ovarian torsion, PID, kidney stone, placenta abruption, this is not meant to be an all-inclusive list EKG interpreted by me (3pts min.). @ -[As above] X-rays interpreted by me (1pt min.). @ -[None done] CT interpreted by me (1pt min.). @ -[None done] U/S interpreted by me (1pt. min.). @ -[I interpreted as above What testing was considered but not performed or refused? (CT, X-rays, U/S, labs)? Why? @ -[None] What meds were considered but not given or refused? Why? @ -[None] Did you discuss the management of the patient with other professionals (professionals i.e. , PA, FLEXOGRAPHIC PRESS OPERATOR, lab, RT, psych nurse, aids social worker, door paneler, teacher, chemistry technical officer, case finishing machine adjuster)? Give summary @ -[No] Was smoking cessation discussed for >3mins.? @ -[No] Was critical care preformed (if so, how long)? @ -[No] Were there social determinants of health that impacted care today? How? (Homelessness, low income, unemployed, alcoholism, drug addiction, transportation, low edu. Level, literacy, decrease access to med. care, group home, rehab)? @ -[No] Was there de-escalation of care discussed even if they declined (Discuss DNR or withdrawal of care, Hospice)? DNR status @ -[No] What co-morbidities impacted this encounter? (DM, HTN, Smoking, COPD, CAD, Cancer, CVA, ARF, Chemo, Hep., AIDS, mental health diagnosis, sleep apnea, morbid obesity)? @ -[None] Was patient admitted / discharged? Hospital course, mention meds given and route, prescriptions, significant lab abnormalities, going to OR and other pertinent info. @ -[Patient is 32-year-old woman here with concerns about possible retained stone after cholecystectomy. The patient has had improvement of symptoms following fluids and medication here. The patient's labs continue to trend towards normal and there does not appear to be evident dilation of the bile duct. In light of this will have patient follow with her surgeon she does have follow-up in the coming week. We discussed return parameters as well. Undiagnosed new problem with uncertain prognosis? @ -[No] Drug Therapy requiring intensive monitoring for toxicity (Heparin, Nitro, Insulin, Cardizem)? @ -[No] Were any procedures done? @ -[No] Diagnosis/symptom? @ -Abdominal pain Acute, or Chronic, or Acute on Chronic? @ -[Acute Uncomplicated (without systemic symptoms) or Complicated (systemic symptoms)? @ -[Unconjugated Side effects of treatment? @ -[No] Exacerbation, Progression, or Severe Exacerbation? @ -[No] Poses a threat to life or bodily function? How? (Chest pain, [place], [place], pneumonia, PE, COPD, DKA, ARF, appy, cholecystitis, CVA, Diverticulitis, Homicidal, Suicidal, threat to staff... and all critical care pts) @ -[No] - Lab Data Result diagrams: 05/12/23 13:40 05/12/23 13:40 Lab Results 05/12/23 05/12/23 05/12/23 Range/Units 13:40 13:40 13:40 WBC 8.8 (3.8-10.6) k/uL RBC 4.85 (3.80-5.40) m/uL Hgb 15.1 (11.4-16.0) gm/dL Hct 43.2 (34.0-46.0) % MCV 89.0 (80.0-100.0) fL MCH 31.0 (25.0-35.0) pg MCHC 34.9 (31.0-37.0) g/dL RDW 13.0 (11.5-15.5) % Plt Count 280 (150-450) k/uL MPV 8.9 Neutrophils % 69 % Lymphocytes % 24 % Monocytes % 4 % Eosinophils % 1 % Basophils % 0 % Neutrophils # 6.1 (1.3-7.7) k/uL Lymphocytes # 2.1 (1.0-4.8) k/uL Monocytes # 0.3 (0-1.0) k/uL Eosinophils # 0.1 (0-0.7) k/uL Basophils # 0.0 (0-0.2) k/uL Sodium (137-145) mmol/L Potassium (3.5-5.1) mmol/L Chloride (98-107) mmol/L Carbon Dioxide (22-30) mmol/L Anion Gap mmol/L BUN (7-17) mg/dL Creatinine (0.52-1.04) mg/dL Est GFR (CKD-EPI)AfAm (>60 ml/min/1.73 sqM) Est GFR (CKD-EPI)NonAf (>60 ml/min/1.73 sqM) Glucose (74-99) mg/dL Plasma Lactic Acid [place] (0.7-2.0) mmol/L Calcium (8.4-10.2) mg/dL Total Bilirubin (0.2-1.3) mg/dL AST (14-36) U/L ALT (4-34) U/L Alkaline Phosphatase (38-126) U/L Total Protein (6.3-8.2) g/dL Albumin (3.5-5.0) g/dL Amylase (30-110) U/L Lipase (23-300) U/L Urine Color [place] Urine Appearance Turbid H (Clear) Urine pH 6.0 (5.0-8.0) Ur Specific [place] 1.040 H (1.001-1.035) Urine Protein 2+ H (Negative) Urine Glucose (UA) Negative (Negative) Urine Ketones 1+ H (Negative) Urine Blood Trace H (Negative) Urine Nitrite Negative (Negative) Urine Bilirubin Negative (Negative) Urine Urobilinogen <2.0 (<2.0) mg/dL Ur Leukocyte Esterase Negative (Negative) Urine RBC 2 (0-5) /hpf Urine WBC 7 H (0-5) /hpf Ur Squamous Epith Cells 13 H (0-4) /hpf Urine Bacteria Occasional H (None) /hpf Hyaline Casts 19 H (0-2) /lpf Urine Mucus Many H (None) /hpf Urine Yeast (Budding) Many H (None) /hpf Urine HCG, Qual Not Detected (Not Detectd) 05/12/23 05/12/23 Range/Units 13:40 13:40 WBC (3.8-10.6) k/uL RBC (3.80-5.40) m/uL Hgb (11.4-16.0) gm/dL Hct (34.0-46.0) % MCV (80.0-100.0) fL MCH (25.0-35.0) pg MCHC (31.0-37.0) g/dL RDW (11.5-15.5) % Plt Count (150-450) k/uL MPV Neutrophils % % Lymphocytes % % Monocytes % % Eosinophils % % Basophils % % Neutrophils # (1.3-7.7) k/uL Lymphocytes # (1.0-4.8) k/uL Monocytes # (0-1.0) k/uL Eosinophils # (0-0.7) k/uL Basophils # (0-0.2) k/uL Sodium 140 (137-145) mmol/L Potassium 3.5 (3.5-5.1) mmol/L Chloride 112 H (98-107) mmol/L Carbon Dioxide 15 L (22-30) mmol/L Anion Gap 13 mmol/L BUN 11 (7-17) mg/dL Creatinine 0.82 (0.52-1.04) mg/dL Est GFR (CKD-EPI)AfAm >90 (>60 ml/min/1.73 sqM) Est GFR (CKD-EPI)NonAf >90 (>60 ml/min/1.73 sqM) Glucose 94 (74-99) mg/dL Plasma Lactic Acid [place] 1.3 (0.7-2.0) mmol/L Calcium 10.0 (8.4-10.2) mg/dL Total Bilirubin 0.5 (0.2-1.3) mg/dL AST 40 H (14-36) U/L ALT 68 H (4-34) U/L Alkaline Phosphatase 87 (38-126) U/L Total Protein 7.8 (6.3-8.2) g/dL Albumin 4.5 (3.5-5.0) g/dL Amylase 54 (30-110) U/L Lipase 100 (23-300) U/L Urine Color Urine Appearance (Clear) Urine pH (5.0-8.0) Ur Specific [place] (1.001-1.035) Urine Protein (Negative) Urine Glucose (UA) (Negative) Urine Ketones (Negative) Urine Blood (Negative) Urine Nitrite (Negative) Urine Bilirubin (Negative) Urine Urobilinogen (<2.0) mg/dL Ur Leukocyte Esterase (Negative) Urine RBC (0-5) /hpf Urine WBC (0-5) /hpf Ur Squamous Epith Cells (0-4) /hpf Urine Bacteria (None) /hpf Hyaline Casts (0-2) /lpf Urine Mucus (None) /hpf Urine Yeast (Budding) (None) /hpf Urine HCG, Qual (Not Detectd) Disposition Clinical Impression: Abdominal pain Disposition: HOME SELF-CARE Condition: Good Instructions (If sedation given, give patient instructions): Abdominal Pain (ED) Prescriptions: Ondansetron Odt [Zofran ODT] 4 mg PO Q8HR PRN #10 tab PRN Reason: Nausea Is patient prescribed a controlled substance at d/c from ED?: No Referrals: Teddy Bowman MD [Primary Care Provider] - 1-2 days Cordelia Tong MD [STAFF PHYSICIAN] - 1-2 days
[2023-05-12 14:00] VITALS: RESP 18
[2023-05-12 14:05] LABS: Appearance,Urine Turbid (Clear); Bacteria,Urine Occasional /hpf; Bilirubin,Urine Negative (Negative); Blood,Urine Trace (Negative); Budding Yeast,Urine Many /hpf; Color,Urine Light Orange; Glucose,Urine (UA) Negative (Negative); Hyaline Casts,Urine 19 /lpf (0-2); Ketones,Urine 1+ (Negative); Leukocyte Esterase,Urine Negative (Negative); Mucus,Urine Many /hpf; Nitrite,Urine Negative (Negative); Protein,Urine 2+ (Negative); RBC,Urine 2 /hpf (0-5); Squamous Epithelial Cell,Urine 13 /hpf (0-4); Urobilinogen,Urine <2.0 mg/dL (<2.0); WBC,Urine 7 /hpf (0-5)
[2023-05-12 14:10] LABS: Basophils % (A) 0 %; Eosinophils # (A) 0.1 k/uL (0-0.7); Eosinophils % (A) 1 %; HCT 43.2 % (34.0-46.0); HGB 15.1 gm/dL (11.4-16.0); Lymphocytes # (A) 2.1 k/uL (1.0-4.8); Lymphocytes % (A) 24 %; MCHC 34.9 g/dL (31.0-37.0); Mean Platelet Volume 8.9; Monocytes # (A) 0.3 k/uL (0-1.0); Monocytes % (A) 4 %; Neutrophils # (A) 6.1 k/uL (1.3-7.7); Neutrophils % (A) 69 %; Platelet Count 280 k/uL (150-450); RBC 4.85 m/uL (3.80-5.40); WBC 8.8 k/uL (3.8-10.6)
[2023-05-12 14:17] LABS: ALT 68 U/L (4-34); AST 40 U/L (14-36); African American GFR (CKD) >90 (>60 ml/min/1.73 sqM); Albumin 4.5 g/dL (3.5-5.0); Alkaline Phosphatase 87 U/L (38-126); Amylase 54 U/L (30-110); Anion Gap 13 mmol/L; Blood Urea Nitrogen 11 mg/dL (7-17); Carbon Dioxide 15 mmol/L (22-30); Chloride 112 mmol/L (98-107); Glucose 94 mg/dL (74-99); Lipase 100 U/L (23-300); Non-African American GFR(CKD) >90 (>60 ml/min/1.73 sqM); Potassium 3.5 mmol/L (3.5-5.1); Sodium 140 mmol/L (137-145); Total Bilirubin 0.5 mg/dL (0.2-1.3); Total Protein 7.8 g/dL (6.3-8.2)
--- NOTE | 2023-05-12 14:49 | US ---
EXAMINATION TYPE: US abdomen limited DATE OF EXAM: 05/12/2023 COMPARISON: 04/26/2023 CLINICAL INDICATION: Female, 32 years old with history of evaluate bile duct, RUQ pain/vomiting; GB r emoved x 2 weeks ago pain ? stone in cbd TECHNIQUE: Multiple sonographic images of the right upper quadrant are obtained. FINDINGS: EXAM MEASUREMENTS: Liver Length: 23.2 cm Gallbladder: Surgically absent CBD: 5.7 mm Right Kidney: 14.5 x 5.0 x 6.1 cm CONSOLE ASSEMBLER NOTES: Pancreas: Obscured by bowel gas Liver: Increased attenuation, hepatomegaly. The degree of attenuation limits assessment for focal liver lesions. Gallbladder: Surgically absent Evidence for sonographic Mcghee's sign: No CBD: limited Right Kidney: No hydronephrosis or masses seen IMPRESSION: 1. Hepatomegaly at 23.2 cm with very severe hepatic steatosis. Appropriate clinical management is adv ised. 2. Bile duct at the upper limits of normal in caliber, 5.7 mm. It measured 6.5 mm on 04/26/2023. 3. Patient status post cholecystectomy.
[2023-05-12 15:43] VITALS: BP 123/93; PULSE 92
[2023-05-12 16:31] VITALS: TEMP 98.5
== END 2023-05-12 16:10 | disposition home or self-care (01) ==
LOC: EC 12:14
DX: K76.0 Fatty (change of) liver, not elsewhere classified (principal); J45.909 Unspecified asthma, uncomplicated; F17.290 Nicotine dependence, other tobacco product, uncomplicated; F32.A Depression, unspecified; Z79.899 Other long term (current) drug therapy; Z79.51 Long term (current) use of inhaled steroids
CPT/HCPCS: 36415; 80053; 82150; 83605; 83690; 85025; 81001; 81025; 76705; 99285; 96374; 96375; 96361 ×2; J2405; J1170

== ENCOUNTER 2023-05-25 13:59 | Emergency (ER) | payer OTHER ==
[2023-05-25 14:37] VITALS: TEMP 98.2
--- NOTE | 2023-05-25 15:27 | ED ---
Abdominal Pain HPI - General Chief Complaint: Nausea/Vomiting/Diarrhea Stated Complaint: NVD Time Seen by Provider: 05/25/23 14:48 Source: patient, RN notes reviewed Mode of arrival: ambulatory Limitations: no limitations - History of Present Illness Initial Comments: This is a 32-year-old female who presents to the emergency department for abdominal pain, nausea, and vomiting. Patient had a cholecystectomy on 04/28. Since then, she has continued to have pain in the right upper quadrant as well as nausea and vomiting. Also reports bright orange urine. She was told that symptoms are normal at this point following the surgery and is related to her body adjusting. She is also concerned about a rash on her abdomen that developed. This was attributed to a dermatitis from the surgery and glue, however she states that the rash is spreading. Used 2.5% hydrocortisone cream with no relief. She had an ultrasound of the abdomen recently which she was told was normal, and she would like additional workup due to the persistence of symptoms. MD Complaint: abdominal pain - Related Data Home Medications Medication Instructions Recorded Confirmed Albuterol Inhaler [Ventolin Hfa 2 puff INHALATION RT-Q6H PRN 04/09/14 04/26/23 Inhaler] Albuterol Nebulized [Ventolin 2.5 mg INHALATION RT-QID PRN 04/09/14 04/26/23 Nebulized] Citalopram Hydrobromide [CeleXA] 40 mg PO HS 09/23/15 04/26/23 Mometasone/Formoterol [Dulera 200 2 puff INHALATION RT-BID 05/10/22 04/26/23 Mcg-5 Mcg Inhaler] Montelukast [Singulair] 10 mg PO HS 05/10/22 04/26/23 Pantoprazole [Protonix] 40 mg PO BID 05/10/22 04/26/23 Topiramate 200 mg PO HS 05/10/22 04/26/23 Dextroamphetamine/Amphetamine 20 mg PO DAILY 04/26/23 04/26/23 [Adderall Xr 20 mg Capsule] Ethinyl Estradiol/Drospirenone 1 tab PO HS 04/26/23 04/26/23 [Deysi 28 Tablet] Famotidine [Pepcid] 20 mg PO DAILY 04/26/23 04/26/23 Metoclopramide [Reglan] 10 mg PO QID PRN 04/26/23 04/26/23 Ondansetron [Zofran] 4 mg PO TID PRN 04/26/23 04/26/23 Sucralfate [Carafate] 1 gm PO ACHS 04/26/23 04/26/23 Previous Rx's Medication Instructions Recorded Acetaminophen Tab [Tylenol Tab] 1,000 mg PO Q6HR PRN #30 tablet 04/28/23 Ibuprofen [Motrin] 600 mg PO Q8HR PRN #30 tab 04/28/23 Simethicone [Gas-X] 125 mg PO AC-TID PRN #20 capsule 04/28/23 Ondansetron Odt [Zofran ODT] 4 mg PO Q8HR PRN #10 tab 05/12/23 HYDROcodone/APAP 5-325MG [Coulters 1 tab PO Q6HR PRN 3 Days #12 tab 05/25/23 5-325] Ketorolac [Toradol] 10 mg PO Q6HR PRN #15 tab 05/25/23 Promethazine Suppository 25 mg RECTAL QID PRN #15 supp 05/25/23 [Phenergan] Allergies Allergy/AdvReac Type Severity Reaction Status Date / Time No Known Allergies Allergy Verified 05/25/23 14:29 Review of Systems ROS Statement: Those systems with pertinent positive or pertinent negative responses have been documented in the HPI. ROS Other: All systems not noted in ROS Statement are negative. Past Medical History Past Medical History: Asthma Additional Past Medical History / Comment(s): Gastric ulcer, H Pylori 04/08 History of Any Multi-Drug Resistant Organisms: None Reported Past Surgical History: Cholecystectomy, Hernia Repair, Orthopedic Surgery Additional Past Surgical History / Comment(s): rotator cuff and left knee Past Anesthesia/Blood Transfusion Reactions: No Reported Reaction Past Psychological History: Depression Smoking Status: Vaper Past Alcohol Use History: None Reported Past Drug Use History: None Reported General Exam Limitations: no limitations General appearance: alert, in no apparent distress Head exam: Present: atraumatic, normocephalic, normal inspection Respiratory exam: Present: normal lung sounds bilaterally. Absent: respiratory distress, wheezes, rales, rhonchi, stridor Cardiovascular Exam: Present: regular rate, normal rhythm, normal heart sounds. Absent: systolic murmur, diastolic murmur, rubs, gallop, clicks GI/Abdominal exam: Present: soft, tenderness (RUQ), normal bowel sounds. Absent: distended Neurological exam: Present: alert, oriented X3, CN II-XII intact Psychiatric exam: Present: normal affect, normal mood Skin exam: Present: other (Rash on the abdomen most prominent around the surgical incisions consistent with contact dermatitis.) Course Vital Signs 05/25/23 05/25/23 14:24 18:12 Temperature 98.2 F 98.2 F Pulse Rate 92 78 Respiratory 18 16 Rate Blood Pressure 147/104 138/91 O2 Sat by Pulse 98 99 Oximetry Medical Decision Making - Medical Decision Making This is a 32-year-old female who presents to the emergency department for ab dominal pain. Was pt. sent in by a medical professional or institution? @ -No Did you speak to anyone other than the patient for history? @ -No Did you review nursing and triage notes? @ -Yes, and I agree, it is accurate with regards to the patient's symptoms. Were old charts reviewed? @ -Abdominal US from 05/12/23 revealing hepatomegaly with severe hepatic steatosis and bile duct at the upper limits of normal caliber, which is improved when compared with 04/26/23. Differential Diagnosis? @ -Differential Abdominal Pain Women: Appendicitis, Cholecystitis, diverticulosis, ischemic bowel, pancreatitis, hepatitis, UTI, gastroenteritis, AAA, incarcerated hernia, bowel obstruction, constipation, inflammatory bowel, hepatitis, peptic ulcer disease, splenic infarction, perforated viscus, vulvitis, ovarian torsion, PID, kidney stone, placenta abruption, this is not meant to be an all-inclusive list EKG interpreted by me (3pts min.)? @ -Not obtained X-rays interpreted by me (1pt min.)? @ -Not obtained CT interpreted by me (1pt min.)? @ -CT scan of the abdomen and pelvis obtained. My interpretation identifies no evidence of bowel wall thickening or free air. U/S interpreted by me (1pt. min.)? @ -Not obtained What testing was considered but not performed? (CT, X-rays, U/S, labs)? Why? @ -None What meds were considered but not given? Why? @ -None Did you discuss the management of the patient with other professionals? @ -No Did you reconcile home meds? @ -No Was smoking cessation discussed for >3mins.? @ -No Was critical care preformed (if so, how long)? @ -No Were there social determinants of health that impacted care today? How? (Homelessness, low income, unemployed, alcoholism, drug addiction, transportation, low edu. Level, literacy, decrease access to med. care, alf, rehab)? @ -No Was there de-escalation of care discussed even if they declined? (Discuss DNR or withdrawal of care, Hospice)? @ -No What co-morbidities impacted this encounter? (DM, HTN, Smoking, COPD, CAD, Cancer, CVA, Hep., AIDS, mental health diagnosis, sleep apnea, morbid obesity)? @ -Hepatic steatosis Was patient admitted / discharged? @ -Discharged. Lab work obtained and found to be unremarkable. Heterophile negative. Urinalysis negative for signs of infection or other acute process. Computed tomography scan of the abdomen was obtained revealing no acute process. This redemonstrated the hepatomegaly with severe hepatic steatosis. Findings reviewed with the patient. Her symptoms were well controlled in the emergency department. She was also given a tube of triamcinolone cream, which she applied to the abdomen. States that this did help with the itching and the cream was sent home with the patient. Advised that she will likely need to follow up with gastroenterology regarding the severe hepatic steatosis. Prescription for Toradol, phenergan suppositories, and Coulters provided with dosing instructions reviewed. She is advised to take the Coulters sparingly when her pain is the most severe. Information for follow up with GI provided. She is advised to contact them for a follow up appointment. Patient discharged home in stable condition. Undiagnosed new problem with uncertain prognosis? @ -None Drug Therapy requiring intensive monitoring for toxicity (Heparin, Nitro, Insulin, Cardizem)? @ -None Were any procedures done? @ -None Diagnosis/symptom? @ -Abdominal pain, N/V, rash Acute, or Chronic, or Acute on Chronic? @ -Acute Uncomplicated (without systemic symptoms) or Complicated (systemic symptoms)? @ -Uncomplicated Side effects of treatment? @ -None Exacerbation, Progression, or Severe Exacerbation] @ -Not applicable Poses a threat to life or bodily function? @ -The pain is impacting her ability to function. Return precautions reviewed in depth, the patient is instructed to return to the emergency department with any new, worsening, or concerning symptoms. Patient verbalized understanding. This case was discussed in detail with the attending ED physician, Dr. Bryant. Presentation, findings, and treatment plan discussed in detail as well. - Lab Data Result diagrams: 05/25/23 15:51 05/25/23 15:51 Lab Results 05/25/23 05/25/23 05/25/23 Range/Units 15:22 15:35 15:51 WBC 6.8 (3.8-10.6) k/uL RBC 4.37 (3.80-5.40) m/uL Hgb 13.8 (11.4-16.0) gm/dL Hct 39.8 (34.0-46.0) % MCV 91.0 (80.0-100.0) fL MCH 31.7 (25.0-35.0) pg MCHC 34.8 (31.0-37.0) g/dL RDW 13.3 (11.5-15.5) % Plt Count 187 (150-450) k/uL MPV 9.7 Neutrophils % 57 % Lymphocytes % 32 % Monocytes % 5 % Eosinophils % 4 % Basophils % 1 % Neutrophils # 3.9 (1.3-7.7) k/uL Lymphocytes # 2.2 (1.0-4.8) k/uL Monocytes # 0.3 (0-1.0) k/uL Eosinophils # 0.3 (0-0.7) k/uL Basophils # 0.0 (0-0.2) k/uL Sodium (137-145) mmol/L Potassium (3.5-5.1) mmol/L Chloride (98-107) mmol/L Carbon Dioxide (22-30) mmol/L Anion Gap mmol/L BUN (7-17) mg/dL Creatinine (0.52-1.04) mg/dL Est GFR (CKD-EPI)AfAm (>60 ml/min/1.73 sqM) Est GFR (CKD-EPI)NonAf (>60 ml/min/1.73 sqM) Glucose (74-99) mg/dL Calcium (8.4-10.2) mg/dL Total Bilirubin (0.2-1.3) mg/dL AST (14-36) U/L ALT (4-34) U/L Alkaline Phosphatase (38-126) U/L Total Protein (6.3-8.2) g/dL Albumin (3.5-5.0) g/dL Amylase (30-110) U/L Lipase (23-300) U/L Urine Color Yellow Urine Appearance Clear (Clear) Urine pH 5.0 (5.0-8.0) Ur Specific [place] 1.020 (1.001-1.035) Urine Protein Negative (Negative) Urine Glucose (UA) Negative (Negative) Urine Ketones Negative (Negative) Urine Blood Negative (Negative) Urine Nitrite Negative (Negative) Urine Bilirubin Negative (Negative) Urine Urobilinogen <2.0 (<2.0) mg/dL Ur Leukocyte Esterase Negative (Negative) Urine HCG, Qual Not Detected (Not Detectd) Heterophile Antibody (Negative) 05/25/23 05/25/23 Range/Units 15:51 15:51 WBC (3.8-10.6) k/uL RBC (3.80-5.40) m/uL Hgb (11.4-16.0) gm/dL Hct (34.0-46.0) % MCV (80.0-100.0) fL MCH (25.0-35.0) pg MCHC (31.0-37.0) g/dL RDW (11.5-15.5) % Plt Count (150-450) k/uL MPV Neutrophils % % Lymphocytes % % Monocytes % % Eosinophils % % Basophils % % Neutrophils # (1.3-7.7) k/uL Lymphocytes # (1.0-4.8) k/uL Monocytes # (0-1.0) k/uL Eosinophils # (0-0.7) k/uL Basophils # (0-0.2) k/uL Sodium 140 (137-145) mmol/L Potassium 3.8 (3.5-5.1) mmol/L Chloride 112 H (98-107) mmol/L Carbon Dioxide 18 L (22-30) mmol/L Anion Gap 10 mmol/L BUN 10 (7-17) mg/dL Creatinine 0.74 (0.52-1.04) mg/dL Est GFR (CKD-EPI)AfAm >90 (>60 ml/min/1.73 sqM) Est GFR (CKD-EPI)NonAf >90 (>60 ml/min/1.73 sqM) Glucose 80 (74-99) mg/dL Calcium 9.5 (8.4-10.2) mg/dL Total Bilirubin 0.4 (0.2-1.3) mg/dL AST 31 (14-36) U/L ALT 36 H (4-34) U/L Alkaline Phosphatase 67 (38-126) U/L Total Protein 6.8 (6.3-8.2) g/dL Albumin 3.9 (3.5-5.0) g/dL Amylase 43 (30-110) U/L Lipase 56 (23-300) U/L Urine Color Urine Appearance (Clear) Urine pH (5.0-8.0) Ur Specific [place] (1.001-1.035) Urine Protein (Negative) Urine Glucose (UA) (Negative) Urine Ketones (Negative) Urine Blood (Negative) Urine Nitrite (Negative) Urine Bilirubin (Negative) Urine Urobilinogen (<2.0) mg/dL Ur Leukocyte Esterase (Negative) Urine HCG, Qual (Not Detectd) Heterophile Antibody Negative (Negative) - Radiology Data Radiology results: report reviewed, image reviewed Disposition Clinical Impression: Nausea and vomiting, Abdominal pain Disposition: HOME SELF-CARE Instructions (If sedation given, give patient instructions): Acute Nausea and Vomiting (ED), Abdominal Pain (ED) Additional Instructions: Return to the emergency department with any new, worsening, or concerning symptoms.Take the Toradol with Tylenol as needed for pain relief. If you choose to take the Toradol, do not take any other anti-inflammatories such as ibuprofen, take one or the other. Take the Coulters sparingly when your pain is the most severe. You can use the Phenergan suppositories up to 4 times daily for nausea and vomiting. Be aware that these may make you drowsy. You can c ontinue applying the triamcinolone cream provided to the rash 3-4x daily to help with the itching. Contact the big data analytics lead as listed below for a follow-up appointment. Prescriptions: HYDROcodone/APAP 5-325MG [Coulters 5-325] 1 tab PO Q6HR PRN 3 Days #12 tab PRN Reason: Pain Promethazine Suppository [Phenergan] 25 mg RECTAL QID PRN #15 supp PRN Reason: Nausea And Vomiting Ketorolac [Toradol] 10 mg PO Q6HR PRN #15 tab PRN Reason: Pain Is patient prescribed a controlled substance at d/c from ED?: Yes When asked, does pt state using other controlled substances?: Yes If prescribed controlled substance>3 days was MAPS reviewed?: Prescribed <3 Days Referrals: Teddy Bowman MD [Primary Care Provider] - 1-2 days Caron Womack MD [STAFF PHYSICIAN] - 1-2 days Time of Disposition: 17:24
[2023-05-25] MEDS: KETOROLAC 15 MG/ML 1 ML VIAL IVP STA (15:50)
[2023-05-25] MEDS: HYDROmorphone 0.5 MG/0.5 ML SYRINGE IVP STA (15:50)
[2023-05-25] MEDS: SODIUM CHLORIDE 0.9% 1,000 ML IV STA (15:50)
[2023-05-25] MEDS: METOCLOPRAMIDE 5 MG/ML 2 ML VIAL IVP STA (15:50)
[2023-05-25 15:52] LABS: Appearance,Urine Clear (Clear); Bilirubin,Urine Negative (Negative); Blood,Urine Negative (Negative); Color,Urine Yellow; Glucose,Urine (UA) Negative (Negative); Ketones,Urine Negative (Negative); Leukocyte Esterase,Urine Negative (Negative); Nitrite,Urine Negative (Negative); Protein,Urine Negative (Negative); Urobilinogen,Urine <2.0 mg/dL (<2.0)
[2023-05-25] MEDS: TRIAMCINOLONE ACET 0.5% CREAM 15 GM TUBE TOPICAL STA (16:23)
--- NOTE | 2023-05-25 16:28 | CT ---
EXAMINATION TYPE: CT abdomen pelvis w con CT DLP: 2194.7 mGycm, Automated exposure control for dose reduction was used. DATE OF EXAM: 05/25/2023 4:16 PM COMPARISON: Abdominal ultrasound 05/12/2023, CT abdomen and pelvis 05/10/2022 CLINICAL INDICATION:Female, 32 years old with history of RUQ pain; RUQ pain TECHNIQUE: Standard CT of the abdomen and pelvis following the administration of 100 cc of Isovue 3 00 IV contrast material. Coronal and sagittal reformats were performed. FINDINGS: LOWER CHEST: Unremarkable ABDOMEN LIVER: Diffusely hypoattenuating parenchyma with regions of geographic focal fatty sparing. Hepatomeg meeta measuring 25.0 cm in CC dimension. GALLBLADDER AND BILE DUCTS: The gallbladder is surgically absent. No focal collection within the gall bladder fossa. PANCREAS: Unremarkable. SPLEEN: Unremarkable. ADRENAL GLANDS: Unremarkable. KIDNEYS AND URETERS: No evidence of hydronephrosis or renal calculus. The kidneys enhance symmetrical ly. PELVIS BLADDER: Incompletely distended but grossly unremarkable. REPRODUCTIVE: Unremarkable. ABDOMEN & PELVIS STOMACH AND BOWEL: Stomach and duodenum are unremarkable. No focal wall thickening or surrounding inf lammatory changes. The appendix is within normal limits. No evidence of bowel obstruction. PERITONEUM: No evidence of pneumoperitoneum or free fluid. VASCULATURE: No evidence of aortic aneurysm. MUSCULOSKELETAL: No acute osseous abnormalities LYMPH NODES: No gross evidence for lymphadenopathy. SOFT TISSUE/ABDOMINAL WALL: Scattered regions of fatty infiltration along the anterior abdominal fat likely related to recent surgery. No organized fluid collection. IMPRESSION: 1. No acute process. 2. Postsurgical changes from cholecystectomy without collection within the surgical bed. 3. Hepatomegaly with severe hepatic steatosis.
[2023-05-25 16:38] LABS: Basophils % (A) 1 %; Eosinophils # (A) 0.3 k/uL (0-0.7); Eosinophils % (A) 4 %; HCT 39.8 % (34.0-46.0); HGB 13.8 gm/dL (11.4-16.0); Lymphocytes # (A) 2.2 k/uL (1.0-4.8); Lymphocytes % (A) 32 %; MCH 31.7 pg (25.0-35.0); MCHC 34.8 g/dL (31.0-37.0); Mean Platelet Volume 9.7; Monocytes # (A) 0.3 k/uL (0-1.0); Monocytes % (A) 5 %; Neutrophils # (A) 3.9 k/uL (1.3-7.7); Neutrophils % (A) 57 %; Platelet Count 187 k/uL (150-450); RBC 4.37 m/uL (3.80-5.40); RDW 13.3 % (11.5-15.5); WBC 6.8 k/uL (3.8-10.6)
[2023-05-25 16:51] LABS: ALT 36 U/L (4-34); AST 31 U/L (14-36); African American GFR (CKD) >90 (>60 ml/min/1.73 sqM); Albumin 3.9 g/dL (3.5-5.0); Alkaline Phosphatase 67 U/L (38-126); Amylase 43 U/L (30-110); Anion Gap 10 mmol/L; Blood Urea Nitrogen 10 mg/dL (7-17); Calcium 9.5 mg/dL (8.4-10.2); Carbon Dioxide 18 mmol/L (22-30); Chloride 112 mmol/L (98-107); Glucose 80 mg/dL (74-99); Lipase 56 U/L (23-300); Non-African American GFR(CKD) >90 (>60 ml/min/1.73 sqM); Potassium 3.8 mmol/L (3.5-5.1); Sodium 140 mmol/L (137-145); Total Bilirubin 0.4 mg/dL (0.2-1.3); Total Protein 6.8 g/dL (6.3-8.2)
[2023-05-25] MEDS: ONDANSETRON 4 MG/2 ML VIAL IVP STA (18:00)
[2023-05-25] MEDS: PROCHLORPERAZINE INJ 10 MG/2 ML VIAL IVP STA (18:00)
[2023-05-25 18:27] VITALS: BP 138/91; PULSE 78; RESP 16
== END 2023-05-25 18:12 | disposition home or self-care (01) ==
LOC: EC 13:59
DX: R11.2 Nausea with vomiting, unspecified (principal); R10.11 Right upper quadrant pain; J45.909 Unspecified asthma, uncomplicated; F32.A Depression, unspecified; F17.290 Nicotine dependence, other tobacco product, uncomplicated; Z79.899 Other long term (current) drug therapy; Z90.49 Acquired absence of other specified parts of digestive tract
CPT/HCPCS: 36415; 80053; 82150; 83690; 85025; 86308; 81003; 81025; 74177; 99284; 96374; 96375 ×4; 96361; J0780; J2765; J2405; J1885; J1170; Q9967

== ENCOUNTER 2023-06-23 09:45 | Day surgery (SDC) | payer OTHER ==
[2023-06-21 13:22] VITALS: BMI 41.0
[~2023-06-23 09:45] MED LIST: LACTATED RINGERS 1,000 ML IV SCH; LIDOCAINE 1% (10MG/ML) FOR IV START INTRADERMA PRN
[2023-06-23] MEDS: LACTATED RINGERS 1,000 ML IV ONE (10:00)
[2023-06-23] MEDS ORDERED: fentaNYL (PF) 50 MCG/ML 2 ML AMP ONE (10:18)
[2023-06-23] MEDS ORDERED: PROPOFOL 10 MG/ML 20 ML VIAL IV ONE (10:18)
[2023-06-23] MEDS ORDERED: MIDAZOLAM 2 MG/2 ML VIAL ONE (10:18)
[2023-06-23] MEDS ORDERED: LIDOCAINE 1% INJ 10MG/ML (20 ML MDV) ONE (10:18)
[2023-06-23 10:39] VITALS: TEMP 96.9
--- NOTE | 2023-06-23 10:44 | P.PCN ---
Date of Procedure: 06/23/23 Procedure(s) Performed: Brief history: Patient is a pleasant 32-year-old white female scheduled for an elective upper endoscopy as well as colonoscopy as a part of evaluation of GERD/intermittent nausea vomiting and chronic diarrhea for the last several months duration Procedure performed: Esophagogastroduodenoscopy with biopsy with biopsy Colonoscopy with biopsy Preoperative diagnosis: GERD/intermittent nausea vomiting Chronic diarrhea Anesthesia: MAC Procedure: After informed consent was obtained from the patient was brought into the endoscopy unit and IV sedation was administered by anesthesia under continuous monitoring. Initially upper endoscopy was done. The Olympus GF 160 video endo scope was inserted inserted into the mouth and esophagus intubated without any difficulty and was gradually advanced into the stomach and duodenum and carefully examined. The bulb and second part of the duodenum appeared normal. His were done from the duodenum to rule out celiac disease. The scope was then withdrawn into the stomach adequately insufflated with air and upon careful examination the antrum had mild gastritis and biopsies were done from this area. Mucosa of the body, cardia and fundus appeared normal. The scope was then withdrawn into the esophagus. The GE junction was located at 40 cm to the incisors. It appeared regular with no erythema erosions or ulcerations. Rest of the esophagus appeared normal. Patient tolerated the procedure well. At this time the patient continued to remain sedation. Initial digital rectal examination was normal. Olympus CF 160 video colonoscope was then inserted into the rectum and gradually advanced to the cecum without any difficulty. Careful examination was performed as the scope was gradually being withdrawn. The prep was excellent. The cecum, ascending colon, transverse colon, descending colon, sigmoid colon and rectum appeared normal. Random biopsies were done from ascending and descending colon to rule out microscopic/collagenous colitis. Retroflexion was performed in the rectum and no lesions were noted. Patient tolerated the procedure well. Impression: 1. Upper endoscopy revealed mild antral gastritis but no evidence of esophagitis or peptic ulcer disease 2. Colonoscopy was within normal limits with no runs of colitis or colorectal neoplasia Recommendations: Findings of this examination were discussed with the patient as well as her family. She was advised to follow with the biopsy results. Recommend repeat screening colonoscopy at age 43. Continue with Protonix 40 mg daily as well as Reglan as needed and follow antireflux measures. She will be seen in office in 3-4 weeks.
[2023-06-23 11:12] VITALS: BP 118/77; PULSE 91
[2023-06-23 11:13] VITALS: RESP 18
== END 2023-06-23 11:38 | disposition home or self-care (01) ==
LOC: ORWHC2ENDO 09:45
PROVIDERS: ATTEND Internal Medicine Gastroenterology
DX: K29.50 Unspecified chronic gastritis without bleeding (principal); K21.9 Gastro-esophageal reflux disease without esophagitis; J45.909 Unspecified asthma, uncomplicated; F17.290 Nicotine dependence, other tobacco product, uncomplicated; Z79.899 Other long term (current) drug therapy; Z90.49 Acquired absence of other specified parts of digestive tract; Z79.51 Long term (current) use of inhaled steroids
CPT/HCPCS: 81025; 88305; 45380; 43239; J2250; J2001; J3010; J2704

== ENCOUNTER → 2023-09-18 | Outpatient (CLI) | payer OTHER ==
--- NOTE | 2023-09-18 13:44 | XR ---
EXAMINATION TYPE: XR elbow complete RT DATE OF EXAM: 09/18/2023 1:22 PM CLINICAL INDICATION:Female, 32 years old with history of S43.401A R elbow strain; [facility] initial encount er. COMPARISON: TECHNIQUE: XR elbow complete RT; elbow was examined in AP, lateral, and oblique projections. FINDINGS: No evidence of any acute osseous pathology, joint dislocation, or soft tissue swelling is n oted. No evidence of joint effusion is present. IMPRESSION: No evidence of acute fracture.
--- NOTE | 2023-09-18 13:50 | XR ---
EXAMINATION TYPE: XR shoulder complete RT DATE OF EXAM: 09/18/2023 1:22 PM CLINICAL INDICATION:Female, 32 years old with history of R52 shoulder pain; [facility] COMPARISON: TECHNIQUE: XR shoulder complete RT; examined in AP, internally rotated and scapular Y projections. FINDINGS: Rotator cuff anchors are seen within the right humeral head. No hardware complication. No evidence of acute osseous pathology, joint dislocation, or soft tissue swelling. The remaining po rtions of the visualized chest are unremarkable. IMPRESSION: No acute osseous pathology.
== END | disposition home or self-care (01) ==
LOC: RADXRMAIN 12:54
PROVIDERS: ATTEND Emergency Medicine
DX: S53.401A Unspecified sprain of right elbow, initial encounter (principal); S43.401A Unspecified sprain of right shoulder joint, initial encounter

== ENCOUNTER → 2023-10-06 | Outpatient (CLI) | payer OTHER ==
--- NOTE | 2023-10-06 15:07 | MR ---
EXAMINATION TYPE: MR shoulder RT wo con DATE OF EXAM: 10/06/2023 COMPARISON: None HISTORY: Right shoulder pain/injury, hx surgery. TECHNIQUE: Multiplanar, multisequence imaging of the right shoulder is performed without contrast. FINDINGS: There are postsurgical changes of rotator cuff repair. Metallic artifact in the lateral humeral head somewhat limits the evaluation. There are also postoperative changes of acromioplasty. There are tiny intrasubstance rim rent tears of the supraspinatus and infraspinatus tendons without r etraction. The subscapularis tendon is normal. Evaluation the biceps tendon is limited due to the met allic artifact from the fixation screws and humeral head but there is probable medial dislocation of the biceps tendon. There is truncation of the superior cartilaginous labrum and the biceps anchor can not be identified with certainty raising the question of a SLAP injury. There is no subacromial or holder bdeltoid bursitis. IMPRESSION: 1. Postsurgical changes of rotator cuff repair and acromioplasty. 2. Small intrasubstance tears and rim rent tears of the supraspinatus and infraspinatus tendons witho ut retraction. 3. Limited evaluation the biceps tendon due to metallic artifact but it appears that the biceps tendo n is dislocated medially and the biceps anchor is not identified with certainty. There is truncation of the superior cartilaginous labrum raising the question of a SLAP injury.
== END | disposition home or self-care (01) ==
LOC: RADMRIMAIN 11:05
PROVIDERS: ATTEND Emergency Medicine
DX: S43.401D Unspecified sprain of right shoulder joint, subsequent encounter (principal); S53.401D Unspecified sprain of right elbow, subsequent encounter

== ENCOUNTER → 2024-04-22 | Outpatient (CLI) | payer BC, OTHER ==
--- NOTE | 2024-04-22 16:48 | XR ---
EXAMINATION TYPE: XR sacrum coccyx DATE OF EXAM: 04/22/2024 4:28 PM INDICATION: Patient age:Female; 33 years old; Reason for study: M53.3, M25.559; [facility]. pain COMPARISON: CT abdomen and pelvis 05/25/2023 TECHNIQUE: The sacrum/coccyx was evaluated in 3 projections. FINDINGS: There is no evidence of fracture or dislocation. There is no soft tissue abnormality. No a bnormal calcifications are present. The bilateral SI joints are intact. IMPRESSION: No acute osseous pathology. [facility], , 04/22/2024 4:46 PM
== END | disposition home or self-care (01) ==
LOC: RADXRMAIN 16:13
PROVIDERS: ATTEND Nurse Practitioner Family
DX: M53.3 Sacrococcygeal disorders, not elsewhere classified (principal); M25.559 Pain in unspecified hip
CPT/HCPCS: 72220

== ENCOUNTER 2024-08-06 09:02 | Emergency (ER) | payer BC, OTHER ==
[2024-08-06 09:15] VITALS: BP 153/102; PULSE 94; RESP 18; TEMP 98.5
[2024-08-06] MEDS: KETOROLAC 15 MG/ML 1 ML VIAL IM STA (09:45)
--- NOTE | 2024-08-06 10:19 | XR ---
EXAMINATION TYPE: XR ribs LT w pa chest xray DATE OF EXAM: 08/06/2024 10:13 AM INDICATION: Patient age:Female; 33 years old; Reason for study: pain; [facility]. pain COMPARISON: Chest radiograph 04/09/2014 TECHNIQUE: Frontal and oblique views of the left ribs with additional PA chest radiograph. FINDINGS: The ribs have a normal appearance. No evidence of displaced fracture. Overall, the lungs a re clear. The cardiac silhouette is normal in size. The remaining osseous structures are intact. Vizcaino rgical anchor within the right humeral head. IMPRESSION: No acute osseous pathology. [facility], , 08/06/2024 10:17 AM
--- NOTE | 2024-08-06 10:27 | CT ---
EXAMINATION TYPE: CT lumbar spine wo con DATE OF EXAM: 08/06/2024 10:03 AM COMPARISON: None. CLINICAL INDICATION: Female, 33 years old with history of fall, pain; [facility], Fall, pain TECHNIQUE: Multiple axial images were obtained from the midportion of T11 through the sacroiliac jesse nts. Soft tissue and bone windows in coronal and sagittal planes were obtained and reviewed. Contrast used: mL of , (None, if empty). Oral contrast used: (None, if empty). CT DLP: 2033.4 mGycm, Automated exposure control for dose reduction was used. FINDINGS: Alignment: There are 5 lumbar type vertebral bodies within normal alignment. Bone: No evidence of fracture is identified. Discs: T12-L1: No spinal canal or neural foraminal stenosis is identified. L1-L2: No spinal canal or neural foraminal stenosis is identified. L2-L3: No spinal canal or neural foraminal stenosis is identified. L3-L4: No spinal canal or neural foraminal stenosis is identified. L4-L5: No spinal canal or neural foraminal stenosis is identified. L5-S1: No spinal canal or neural foraminal stenosis is identified. Other: None IMPRESSION: 1. No evidence for spinal fracture. 2. No significant degeneration changes. 3. No evidence for significant spinal canal neural foraminal stenosis. [facility], , 08/06/2024 10:24 AM
--- NOTE | 2024-08-06 10:35 | ED ---
Back Pain HPI - General Chief Complaint: Back Pain/Injury Stated Complaint: rib/back pain Time Seen by Provider: 08/06/24 09:16 Source: patient, RN notes reviewed Limitations: no limitations - History of Present Illness Initial Comments: 33-year-old female presents emergency department with chief complaint of back pain, rib pain. Patient states has been suffering for back pain going to the physical therapy but states that she was reaching for a bag fell onto the left side and she has worsening low back pain, left-sided rib pain take a deep breath. Denies any head injury no loss conscious denies any bowel, bladder cons or retention no saddle anesthesias. - Related Data Home Medications Medication Instructions Recorded Confirmed Albuterol Inhaler [Ventolin Hfa 2 puff INHALATION Q6H PRN 04/09/14 06/21/23 Inhaler] Citalopram Hydrobromide [CeleXA] 40 mg PO HS 09/23/15 06/23/23 Mometasone/Formoterol [Dulera 200 2 puff INHALATION BID 05/10/22 06/23/23 Mcg-5 Mcg Inhaler] Montelukast [Singulair] 10 mg PO HS 05/10/22 06/23/23 Pantoprazole [Protonix] 40 mg PO BID 05/10/22 06/23/23 Topiramate 200 mg PO HS 05/10/22 06/23/23 Ethinyl Estradiol/Drospirenone 1 tab PO HS 04/26/23 06/23/23 [Deysi 28 Tablet] Metoclopramide [Reglan] 10 mg PO QID PRN 04/26/23 06/23/23 Ondansetron [Zofran] 4 mg PO TID PRN 04/26/23 06/23/23 Allergies Allergy/AdvReac Type Severity Reaction Status Date / Time No Known Allergies Allergy Verified 08/06/24 09:15 Review of Systems ROS Statement: Those systems with pertinent positive or pertinent negative responses have been documented in the HPI. ROS Other: All systems not noted in ROS Statement are negative. Past Medical History Past Medical History: Asthma, GERD/Reflux, Liver Disease Additional Past Medical History / Comment(s): "When I had my gallbladder surgery 04/30/23 told me I had A-Fib but had ECHO and everthying was normal". Gastric ulcer, H Pylori 04/08. Fatty liver. Migraines. History of Any Multi-Drug Resistant Organisms: None Reported Past Surgical History: Cholecystectomy, Hernia Repair, Orthopedic Surgery Additional Past Surgical History / Comment(s): Right rotator cuff repair, left knee surgery. Past Anesthesia/Blood Transfusion Reactions: Previous Problems w/ Anesthesia, Postoperative Nausea & Vomiting (PONV) Additional Past Anesthesia/Blood Transfusion Reaction / Comment(s): "With rotator cuff, think the block went into my lung, had trouble breathing when I came out of anesthesia". Past Psychological History: Depression Smoking Status: Former smoker, Vaper Past Alcohol Use History: None Reported Past Drug Use History: None Reported - Past Family History Mother Family Medical History: No Reported History General Exam Limitations: no limitations General appearance: alert, in no apparent distress Head exam: Present: atraumatic, normocephalic, normal inspection Respiratory exam: Present: normal lung sounds bilaterally, chest wall tenderness. Absent: respiratory distress, wheezes, rales, rhonchi, stridor Cardiovascular Exam: Present: regular rate, normal rhythm, normal heart sounds. Absent: systolic murmur, diastolic murmur, rubs, gallop, clicks GI/Abdominal exam: Present: soft, normal bowel sounds. Absent: distended, tenderness, guarding, rebound, rigid Extremities exam: Present: normal inspection, full ROM, normal capillary refill. Absent: tenderness, pedal edema, joint swelling, calf tenderness Back exam: Present: full ROM, tenderness, muscle spasm, paraspinal tenderness. Absent: vertebral tenderness Course Vital Signs 08/06/24 09:12 Temperature 98.5 F Pulse Rate 94 Respiratory 18 Rate Blood Pressure 153/102 O2 Sat by Pulse 98 Oximetry Medical Decision Making - Medical Decision Making Was pt. sent in by a medical professional or institution (, PA, TAKE DOWN INSPECTOR, urgent care, hospital, or [facility]...) When possible be specific @ -No Did you speak to anyone other than the patient for history (EMS, parent, family, police, friend...)? What history was obtained from this source @ -No Did you review nursing and triage notes (agree or disagree)? Why? @ -I reviewed and agree with nursing and triage notes Were old charts reviewed (outside hosp., previous admission, EMS record, old EKG, old radiological studies, urgent care reports/EKG's, [facility] records)? Report findings @ -No old charts were reviewed Differential Diagnosis (chest pain, altered mental status, abdominal pain women, abdominal pain men, vaginal bleeding, weakness, fever, dyspnea, syncope, headache, dizziness, GI bleed, back pain, seizure, CVA, palpatations, mental health, musculoskeletal)? @ -Differential Back Pain: Strain, zoster, cauda equina syndrome, epidural abscess, vertebral osteomyelitis, discitis, fracture, subluxation, disc herniation, DJD, spinal stenosis, dissection, AAA, pancreatitis, peptic ulcer disease, pyelonephritis, kidney stone, this is not meant to be an all-inclusive list. EKG interpreted by me (3pts min.). @ -As above X-rays interpreted by me (1pt min.). @ -Rib series with chest x-ray shows no acute cardio pulm abnormality CT interpreted by me (1pt min.). @ -CT lumbar spine showing no significant generative changes or acute fracture U/S interpreted by me (1pt. min.). @ -None done What testing was considered but not performed or refused? (CT, X-rays, U/S, labs)? Why? @ -None What meds were considered but not given or refused? Why? @ -None Did you discuss the management of the patient with other professionals (professionals i.e. , PA, TAKE DOWN INSPECTOR, lab, RT, psych nurse, social work lecturer, wood caulker, teacher, aerospace engineer officer armament, case checker)? Give summary @ -No Was smoking cessation discussed for >3mins.? @ -No Was critical care preformed (if so, how long)? @ -No Were there social determinants of health that impacted care today? How? (Homelessness, low income, unemployed, alcoholism, drug addiction, transportation, low edu. Level, literacy, decrease access to med. care, [facility]ci, rehab)? @ -No Was there de-escalation of care discussed even if they declined (Discuss DNR or withdrawal of care, Hospice)? DNR status @ -No What co-morbidities impacted this encounter? (DM, HTN, Smoking, COPD, CAD, Cancer, CVA, ARF, Chemo, Hep., AIDS, mental health diagnosis, sleep apnea, morbid obesity)? @ -None Was patient admitted / discharged? Hospital course, mention meds given and route, prescriptions, significant lab abnormalities, going to OR and other pertinent info. @ -Discharge patient presented after fall, complaints of low back pain, rib pain there is no acute fracture patient has a lumbar strain, rib contusion. Patient discharged in stable condition. Undiagnosed new problem with uncertain prognosis? @ -No Drug Therapy requiring intensive monitoring for toxicity (Heparin, Nitro, Insulin, Cardizem)? @ -No Were any procedures done? @ -No Diagnosis/symptom? @ -Lumbar strain, rib contusion Acute, or Chronic, or Acute on Chronic? @ -Acute Uncomplicated (without systemic symptoms) or Complicated (systemic symptoms)? @ -Uncomplicated Side effects of treatment? @ -No Exacerbation, Progression, or Severe Exacerbation? @ -No Poses a threat to life or bodily function? How? (Chest pain, [place], [place], pneumonia, PE, COPD, DKA, ARF, appy, cholecystitis, CVA, Diverticulitis, Homicidal, Suicidal, threat to staff... and all critical care pts) @ -No Disposition Clinical Impression: Strain of lumbar region, Contusion of rib on left side Disposition: HOME SELF-CARE Condition: Stable Instructions (If sedation given, give patient instructions): Acute Low Back Pain (ED), Rib Contusion (ED) Additional Instructions: Please return to the Emergency Department if symptoms worsen or any other concerns. Is patient prescribed a controlled substance at d/c from ED?: No Referrals: Teddy Bowman MD [Primary Care Provider] - 1-2 days Time of Disposition: 10:35
== END 2024-08-06 10:45 | disposition home or self-care (01) ==
LOC: EC 09:02
DX: S39.012A Strain of muscle, fascia and tendon of lower back, initial encounter (principal); S20.212A Contusion of left front wall of thorax, initial encounter; F17.290 Nicotine dependence, other tobacco product, uncomplicated; W19.XXXA Unspecified fall, initial encounter
CPT/HCPCS: 71101; 72131; 96374; 96372; J1885; 99284

== ENCOUNTER 2024-09-28 19:05 | Emergency (ER) | payer BC, OTHER ==
--- NOTE | 2024-09-28 20:17 | ED ---
Lower Extremity Injury HPI - General Chief Complaint: Extremity Injury, Lower Stated Complaint: R Leg Pain/Sports injury Time Seen by Provider: 09/28/24 19:18 Source: patient Mode of arrival: ambulatory - History of Present Illness Initial Comments: 33-year-old female presenting with chief complaint of right ankle pain. Patient was playing softball when she bent down to brass pickler the ball and felt a pop in the back of her ankle. She is having pain going up the leg starting at the ankle. She is having pain and difficulty with dorsiflexion of the ankle. She still able to move her toes and has no numbness or tingling. No obvious deformity. - Related Data Home Medications Medication Instructions Recorded Confirmed Albuterol Inhaler [Ventolin Hfa 2 puff INHALATION Q6H PRN 04/09/14 06/21/23 Inhaler] Citalopram Hydrobromide [CeleXA] 40 mg PO HS 09/23/15 06/23/23 Mometasone/Formoterol [Dulera 200 2 puff INHALATION BID 05/10/22 06/23/23 Mcg-5 Mcg Inhaler] Montelukast [Singulair] 10 mg PO HS 05/10/22 06/23/23 Pantoprazole [Protonix] 40 mg PO BID 05/10/22 06/23/23 Topiramate 200 mg PO HS 05/10/22 06/23/23 Ethinyl Estradiol/Drospirenone 1 tab PO HS 04/26/23 06/23/23 [Deysi 28 Tablet] Metoclopramide [Reglan] 10 mg PO QID PRN 04/26/23 06/23/23 Ondansetron [Zofran] 4 mg PO TID PRN 04/26/23 06/23/23 Allergies Allergy/AdvReac Type Severity Reaction Status Date / Time No Known Allergies Allergy Verified 08/06/24 09:15 Review of Systems ROS Statement: Those systems with pertinent positive or pertinent negative responses have been documented in the HPI. ROS Other: All systems not noted in ROS Statement are negative. Past Medical History Past Medical History: Asthma, GERD/Reflux, Liver Disease Additional Past Medical History / Comment(s): "When I had my gallbladder surgery 04/30/23 told me I had A-Fib but had ECHO and everthying was normal". Gastric ulcer, H Pylori 04/08. Fatty liver. Migraines. History of Any Multi-Drug Resistant Organisms: None Reported Past Surgical History: Cholecystectomy, Hernia Repair, Orthopedic Surgery Additional Past Surgical History / Comment(s): Right rotator cuff repair, left knee surgery. Past Anesthesia/Blood Transfusion Reactions: Previous Problems w/ Anesthesia, Postoperative Nausea & Vomiting (PONV) Additional Past Anesthesia/Blood Transfusion Reaction / Comment(s): "With rotator cuff, think the block went into my lung, had trouble breathing when I came out of anesthesia". Past Psychological History: Depression Smoking Status: Former smoker, Vaper Past Alcohol Use History: None Reported Past Drug Use History: None Reported - Past Family History Mother Family Medical History: No Reported History General Exam Limitations: no limitations General appearance: alert, in no apparent distress Head exam: Present: atraumatic, normocephalic, normal inspection Eye exam: Present: normal appearance, EOMI Neck exam: Present: normal inspection. Absent: meningismus Respiratory exam: Absent: respiratory distress Right Ankle exam: Present: normal inspection, tenderness. Absent: full ROM Neurovascular tendon exam: Present: no vascular compromise Neurological exam: Present: alert, oriented X3 Psychiatric exam: Present: normal affect, normal mood Skin exam: Present: warm, dry, normal color Course Vital Signs 09/28/24 09/28/24 19:15 21:05 Temperature 97.8 F 98.1 F Pulse Rate 105 H 89 Respiratory 20 16 Rate Blood Pressure 161/117 121/83 O2 Sat by Pulse 98 96 Oximetry Procedures - Orthopedic Splinting/Casting Injury #1 Side: right Lower Extremity Injury Location: short leg Lower Extremity Immobilizer: posterior splint Other Orthopedic Equipment: crutches Medical Decision Making - Medical Decision Making Was pt. sent in by a medical professional or institution (, PA, DIGITAL MEDIA SPECIALIST, urgent care, hospital, or jail...) When possible be specific @ -No Did you speak to anyone other than the patient for history (EMS, parent, family, police, friend...)? What history was obtained from this source @ -No Did you review nursing and triage notes (agree or disagree)? Why? @ -I reviewed and agree with nursing and triage notes Were old charts reviewed (outside hosp., previous admission, EMS record, old EKG, old radiological studies, urgent care reports/EKG's, jail records)? Report findings @ -No old charts were reviewed Differential Diagnosis (chest pain, altered mental status, abdominal pain women, abdominal pain men, vaginal bleeding, weakness, fever, dyspnea, syncope, headache, dizziness, GI bleed, back pain, seizure, CVA, palpatations, mental health, musculoskeletal)? @ -Differential Musculoskeletal Muscular strain, contusion, ligament sprain, fracture, arthritis, septic arthritis, bursitis, cellulitis, muscle spasm, nerve compression, DVT, arterial occlusion, herpes zoster, electrolyte abnormality, tumor.... This is not meant to be in all inclusive list EKG interpreted by me (3pts min.). @ -As above X-rays interpreted by me (1pt min.). @ -X-ray shows no evidence of acute fracture. Subcutaneous swelling around the ankle likely secondary to underlying soft tissue injury CT interpreted by me (1pt min.). @ -None done U/S interpreted by me (1pt. min.). @ -None done What testing was considered but not performed or refused? (CT, X-rays, U/S, labs)? Why? @ -None What meds were considered but not given or refused? Why? @ -None Did you discuss the management of the patient with other professionals (professionals i.e. , PA, DIGITAL MEDIA SPECIALIST, lab, RT, psych nurse, social media developer, cigar packing examiner, teacher, chief financial officer, skilled nursing case manager)? Give summary @ -No Was smoking cessation discussed for >3mins.? @ -No Was critical care preformed (if so, how long)? @ -No Were there social determinants of health that impacted care today? How? (Homelessness, low income, unemployed, alcoholism, drug addiction, transportation, low edu. Level, literacy, decrease access to med. care, senior care, rehab)? @ -No Was there de-escalation of care discussed even if they declined (Discuss DNR or withdrawal of care, Hospice)? DNR status @ -No What co-morbidities impacted this encounter? (DM, HTN, Smoking, COPD, CAD, Cancer, CVA, ARF, Chemo, Hep., AIDS, mental health diagnosis, sleep apnea, morbid obesity)? @ -None Was patient admitted / discharged? Hospital course, mention meds given and route, prescriptions, significant lab abnormalities, going to OR and other pertinent info. @ -33-year-old female presenting with chief complaint of right lower extremity injury. Pain is mainly behind the ankle. She is having difficulty with dorsiflexion. X-ray negative for fracture. Concern for Achilles tendon injury. Patient is placed in a posterior splint and instructed to follow-up with orthopedics. Follow-up with PCP. Report back to ER with any new or worsening symptoms. Discussed return parameters and answered all questions. Patient conveyed verbal understanding and agreed to the plan. I discussed this case in detail with my attending Dr. Weinberg Undiagnosed new problem with uncertain prognosis? @ -No Drug Therapy requiring intensive monitoring for toxicity (Heparin, Nitro, Insulin, Cardizem)? @ -No Were any procedures done? @ -Posterior short leg splint Diagnosis/symptom? @ -Achilles tendon injury Acute, or Chronic, or Acute on Chronic? @ -Acute Uncomplicated (without systemic symptoms) or Complicated (systemic symptoms)? @ -uncomplicated Side effects of treatment? @ -No Exacerbation, Progression, or Severe Exacerbation? @ -No Poses a threat to life or bodily function? How? (Chest pain, [place], [place], pneumonia, PE, COPD, DKA, ARF, appy, cholecystitis, CVA, Diverticulitis, Homicidal, Suicidal, threat to staff... and all critical care pts) @ -Potential if the patient does not follow-up with orthopedics Disposition Clinical Impression: Achilles tendon pain Disposition: HOME SELF-CARE Condition: Good Instructions (If sedation given, give patient instructions): Achilles Tendon Rupture (ED) Additional Instructions: Follow-up with orthopedics. Report back to ER with any new or worsening symptoms. Rest, ice, compress, elevate the ankle. Motrin and Tylenol as needed for pain control. Is patient prescribed a controlled substance at d/c from ED?: No Referrals: Teddy Bowman MD [Primary Care Provider] - 1-2 days Jordan Mcghee MD [STAFF PHYSICIAN] - 1-2 days Time of Disposition: 20:51
--- NOTE | 2024-09-28 20:26 | XR ---
EXAMINATION TYPE: XR ankle complete RT DATE OF EXAM: 09/28/2024 7:49 PM COMPARISON: None CLINICAL INDICATION: Female, 33 years old with history of injury; PHH, pain TECHNIQUE: XR ankle complete RT; frontal, lateral and oblique projections. FINDINGS: There is no evidence of acute osseous pathology. No evidence of subluxation or dislocation. Kager's fat pad is intact. Mild soft tissue swelling around the ankle. No radiopaque foreign bodies are ident ified. IMPRESSION: 1. No evidence of acute fracture. 2. Subcutaneous swelling around the ankle likely secondary to underlying soft tissue injury. [facility], , 09/28/2024 8:23 PM
[2024-09-28] MEDS: ACET/COD 300 MG/30 MG STARTER PACK 6 TAB BTL PO STA (21:02)
[2024-09-28 21:14] VITALS: BP 121/83; PULSE 89; RESP 16; TEMP 98.1
== END 2024-09-28 21:05 | disposition home or self-care (01) ==
LOC: EC 19:05
DX: S86.001A Unspecified injury of right Achilles tendon, initial encounter (principal); F17.290 Nicotine dependence, other tobacco product, uncomplicated; X50.1XXA Overexertion from prolonged static or awkward postures, initial encounter; Y93.64 Activity, baseball
CPT/HCPCS: 29515; 99283